=== PATIENT | male | born 1950 | race Caucasian/White ===

== ENCOUNTER 2019-10-12 16:14 | Outpatient (RCR) | payer OTHER, SELFPAY ==
[2019-10-12 17:07] LABS: INR 2.5; Prothrombin Time 26.4 Seconds (11.1-14.7)
== END 2020-01-10 23:59 | disposition home or self-care (01) ==
LOC: ANHLAB 16:14
PROVIDERS: PCP Family Medicine; Visit Provider Nurse Practitioner Family
DX: Z51.81 Encounter for therapeutic drug level monitoring (principal); Z79.01 Long term (current) use of anticoagulants
CPT/HCPCS: 36415; 85610

== ENCOUNTER 2019-11-30 15:47 | Outpatient (CLI) | payer OTHER, SELFPAY ==
[2019-11-30 17:09] LABS: Basophils Percent Auto 0.6 % (0.2-1.2); Eosinophils Absolute Auto 0.1 K/mm3 (0-0.3); Hematocrit 49.1 % (42.0-52.0); Hemoglobin 15.8 g/dL (14.0-18.0); Immature Granulocyte Absolute 0.02 K/mm3 (0.00-0.031); Immature Granulocyte Percent A 0.3 % (0-0.5); Lymphocytes Absolute Auto 0.99 K/mm3 (0.9-3.2); Lymphocytes Percent Auto 14.6 % (18.3-44.2); Mean Corpuscular HGB Conc 32.2 g/dl (32-36); Mean Corpuscular Hemoglobin 30.2 pg (26-34); Mean Corpuscular Volume 93.9 fl (80-100); Mean Platelet Volume 11.5 fl (7.4-10.4); Monocytes Absolute Auto 0.6 K/mm3 (0.1-0.6); Monocytes Percent Auto 8.1 % (2.6-8.5); Neutrophils Absolute Auto 5.1 K/mm3 (1.3-6.7); Neutrophils Percent Auto 75.4 % (45.5-73.1); Platelet Count Result 189 k/mm3 (150-375); Red Blood Count 5.23 M/mm3 (4.6-6.20); Red Cell Distribution Width 14.6 % (11.5-14.5); White Blood Count 6.8 K/mm3 (4.5-10.0)
[2019-11-30 17:15] LABS: Alanine Aminotransferase 25 U/L (4-50); Albumin Level 4.7 g/dL (3.5-5.1); Alkaline Phosphatase 98 U/L (38-126); Aspartate Amino Transferase 37 U/L (17-59); Bilirubin,Total 2.2 mg/dL (0.2-1.3); Blood Urea Nitrogen 19 mg/dL (9-20); Carbon Dioxide 26 mmol/L (22-30); Chloride 100 mmol/L (98-107); Cholesterol 260 mg/dL (0-200); Estimated Glomerular Filt Rate 60; Glucose 82 mg/dL (75-110); HDL Direct 49 mg/dL; Potassium 4.3 mmol/L (3.4-5.0); Sodium 138 mmol/L (137-145); Triglycerides 159 mg/dL (<150)
[2019-11-30 17:26] LABS: LDL Cholesterol Direct 173 mg/dL
== END 2019-11-30 15:48 | disposition home or self-care (01) ==
LOC: ANHBWCLAB 15:50
PROVIDERS: PCP Family Medicine; Visit Provider Nurse Practitioner Family
DX: E78.2 Mixed hyperlipidemia (principal); R73.03 Prediabetes
CPT/HCPCS: 36415; 80053; 80061; 83036; 85025

== ENCOUNTER 2019-12-28 16:08 | Outpatient (RCR) | payer OTHER, SELFPAY ==
[2019-11-24 17:36] LABS: INR 3.3
[2019-12-15 17:28] LABS: INR 3.2; Prothrombin Time 32.2 Seconds (11.1-14.7)
[2019-12-28 17:36] LABS: Prothrombin Time 22.5 Seconds (11.1-14.7)
== END 2020-02-22 23:59 | disposition home or self-care (01) ==
LOC: ANHBWCLAB 16:08
PROVIDERS: PCP Family Medicine; Visit Provider Family Medicine
DX: Z51.81 Encounter for therapeutic drug level monitoring (principal); Z79.01 Long term (current) use of anticoagulants
CPT/HCPCS: 36415; 85610

== ENCOUNTER 2021-04-12 11:25 | Outpatient (CLI) | payer OTHER, SELFPAY ==
[2021-04-12 19:58] LABS: Basophils Absolute Auto 0.1 K/mm3 (0.0-0.1); Basophils Percent Auto 1.3 % (0.2-1.2); Eosinophils Absolute Auto 0.1 K/mm3 (0-0.3); Eosinophils Percent Auto 3.1 % (0-4.4); Hematocrit 48.1 % (42.0-52.0); Hemoglobin 15.6 g/dL (14.0-18.0); Immature Granulocyte Absolute 0.01 K/mm3 (0.00-0.031); Immature Granulocyte Percent A 0.2 % (0-0.5); Lymphocytes Absolute Auto 0.74 K/mm3 (0.9-3.2); Lymphocytes Percent Auto 16.6 % (18.3-44.2); Mean Corpuscular HGB Conc 32.4 g/dl (32-36); Mean Corpuscular Hemoglobin 30.6 pg (26-34); Mean Corpuscular Volume 94.5 fl (80-100); Monocytes Absolute Auto 0.5 K/mm3 (0.1-0.6); Monocytes Percent Auto 10.8 % (2.6-8.5); Platelet Count Result 170 k/mm3 (150-375); Red Blood Count 5.09 M/mm3 (4.6-6.20); Red Cell Distribution Width 14.8 % (11.5-14.5); White Blood Count 4.5 K/mm3 (4.5-10.0)
[2021-04-12 20:06] LABS: INR 1.7; Prothrombin Time 20.7 Seconds (11.1-14.7)
[2021-04-12 20:12] LABS: Alanine Aminotransferase 24 U/L (4-50); Alkaline Phosphatase 88 U/L (38-126); Anion Gap 6 mmol/L (8-16); Aspartate Amino Transferase 32 U/L (17-59); Bilirubin,Total 0.8 mg/dL (0.2-1.3); Blood Urea Nitrogen 19 mg/dL (9-20); Calcium 9.2 mg/dL (8.4-10.2); Carbon Dioxide 25 mmol/L (22-30); Chloride 108 mmol/L (98-107); Cholesterol 255 mg/dL (0-200); Estimated Glomerular Filt Rate > 60; Glucose 89 mg/dL (75-110); HDL Direct 43 mg/dL; Potassium 4.5 mmol/L (3.4-5.0); Sodium 139 mmol/L (137-145); Triglycerides 410 mg/dL (<150)
[2021-04-12 20:17] LABS: Hemoglobin A1C 5.8 % (<5.7)
[2021-04-12 20:23] LABS: LDL Cholesterol Direct 137 mg/dL
[2021-04-12 20:28] LABS: Vitamin D 25 Hydroxy 88.4 ng/mL
== END 2021-04-12 11:26 | disposition home or self-care (01) ==
LOC: ANHBWCLAB 11:28
PROVIDERS: PCP Family Medicine; Visit Provider Physician Assistant
DX: E78.2 Mixed hyperlipidemia (principal); I10 Essential (primary) hypertension; I48.19 Other persistent atrial fibrillation; R73.03 Prediabetes; Z79.01 Long term (current) use of anticoagulants
CPT/HCPCS: 36415; 80053; 80061; 82306; 83036; 85025; 85610

== ENCOUNTER 2021-05-02 15:15 | Outpatient (CLI) | payer OTHER, SELFPAY ==
[2021-05-02 17:44] LABS: Prothrombin Time 30.5 Seconds (11.1-14.7)
== END 2021-05-02 15:16 | disposition home or self-care (01) ==
PROVIDERS: PCP Family Medicine; Visit Provider Physician Assistant
DX: I48.19 Other persistent atrial fibrillation (principal); Z79.01 Long term (current) use of anticoagulants
CPT/HCPCS: 36415; 85610

== ENCOUNTER 2023-04-01 11:55 | Outpatient (CLI) | payer OTHER, SELFPAY ==
--- NOTE | ~2023-04-01 | XR_ITS ---
Clinical Indication: Shortness of breath PA and lateral views of the chest: Comparison: None Findings: There are minimal bilateral pleural effusions. No consolidation or pneumothorax. Cardiomed iastinal silhouette is enlarged. Bones and soft tissues are unremarkable. Impression: Minimal bilateral pleural effusions. Cardiomegaly. Reviewed, dictated and finalized at location . Impression: Minimal bilateral pleural effusions. Cardiomegaly.
[2023-04-01 21:25] LABS: Cholesterol 200 mg/dL (0-200); HDL Direct 56 mg/dL; Triglycerides 137 mg/dL (<150)
[2023-04-01 21:41] LABS: LDL Cholesterol Direct 117 mg/dL
[2023-04-01 21:59] LABS: Prostate Specific Antigen 4.8 ng/mL (< OR = 4.0); Thyroid Stimulating Hormone 0.085 uIU/mL (0.465-4.680)
== END 2023-04-01 11:56 | disposition home or self-care (01) ==
LOC: ANHBWCLAB 11:56
PROVIDERS: PCP Family Medicine; Visit Provider Nurse Practitioner
DX: R06.02 Shortness of breath (principal); I48.19 Other persistent atrial fibrillation; R73.03 Prediabetes; E78.2 Mixed hyperlipidemia; Z12.5 Encounter for screening for malignant neoplasm of prostate; Z79.01 Long term (current) use of anticoagulants
CPT/HCPCS: 36415; 71046; 80061; 84153; 84443; G0103

== ENCOUNTER 2023-04-01 14:09 | Inpatient (IN) | payer OTHER, MEDICARE, SELFPAY ==
[2023-04-01] VITALS (23 sets, daily range): BP systolic 90–112; BP diastolic 66–82; PULSE 86–117; RESP 15–30; TEMP 36.2–36.7; O2SAT 89–100
--- NOTE | ~2023-04-01 | US_ITS ---
EXAMINATION: US venous doppler [facility] DATE: 04/01/2023 22:22 INDICATION: edema . TECHNIQUE: Grayscale images without and with compression and Doppler images of the bilateral lower ex tremity veins were obtained. COMPARISON: None FINDINGS: The right common femoral vein, profunda (deep) femoral vein, femoral vein, popliteal vein, peroneal v ein, posterior tibial veins, gastrocnemius vein, and greater saphenous vein are patent. The left common femoral vein, profunda (deep) femoral vein, femoral vein, popliteal vein, peroneal v ein, posterior tibial veins, gastrocnemius vein, and greater saphenous vein are patent. IMPRESSION: 1. Patent bilateral lower extremity veins. No evidence of deep venous thrombosis. Reviewed, dictated and finalized at location K. IMPRESSION: 1. Patent bilateral lower extremity veins. No evidence of deep venous thrombos is.
--- NOTE | 2023-04-01 14:15 | ECG_ITS ---
Measurements Intervals [place] Rate: 115 P: IA: 0 QRS: 17 QRSD: 96 T: 179 QT: 358 QTc: 497 Interpretive Statements ATRIAL FIBRILLATION WITH RAPID VENTRICULAR RESPONSE LOW QRS VOLTAGE IN LIMB LEADS CANNOT RULE OUT SEPTAL INFARCT, AGE INDETERMINATE BORDERLINE ST-T WAVE ABNORMALITY- INF/LAT LEADS BASELINE ARTIFACT- I, II, III, AVR, AVL, AVF, V4-V6 ABNORMAL ECG NO PREVIOUS ECG AVAILABLE FOR COMPARISON Electronically Signed On 04-01-2023 14:50:52 CDT by Dharmesh Clark D.O.
[2023-04-01 14:37] LABS: Basophils Percent Auto 0.5 % (0.2-1.2); Eosinophils Percent Auto 0.4 % (0-4.4); Hematocrit 48.5 % (42.0-52.0); Hemoglobin 15.9 g/dL (14.0-18.0); Immature Granulocyte Absolute 0.03 K/mm3 (0.00-0.031); Immature Granulocyte Percent A 0.4 % (0-0.5); Lymphocytes Absolute Auto 0.51 K/mm3 (0.9-3.2); Mean Corpuscular HGB Conc 32.8 g/dl (32-36); Mean Corpuscular Hemoglobin 30.5 pg (26-34); Mean Corpuscular Volume 93.1 fl (80-100); Mean Platelet Volume 11.6 fl (7.4-10.4); Monocytes Absolute Auto 0.5 K/mm3 (0.1-0.6); Monocytes Percent Auto 7.1 % (2.6-8.5); Neutrophils Absolute Auto 6.2 K/mm3 (1.3-6.7); Neutrophils Percent Auto 84.6 % (45.5-73.1); Platelet Count Result 162 k/mm3 (150-375); Red Blood Count 5.21 M/mm3 (4.6-6.20); White Blood Count 7.3 K/mm3 (4.5-10.0)
[2023-04-01 14:50] LABS: Alanine Aminotransferase 46 U/L (6-50); Alkaline Phosphatase 65 U/L (38-126); Anion Gap 8 mmol/L (8-16); Aspartate Amino Transferase 44 U/L (17-59); Bilirubin,Total 1.6 mg/dL (0.2-1.3); Blood Urea Nitrogen 23 mg/dL (9-20); Calcium 8.8 mg/dL (8.4-10.2); Carbon Dioxide 24 mmol/L (22-30); Chloride 109 mmol/L (98-107); Estimated CRCL calculation 55 ml/min; Estimated Glomerular Filt Rate 54; Glucose 107 mg/dL (65-110); Potassium 4.8 mmol/L (3.4-5.0); Sodium 141 mmol/L (137-145)
--- NOTE | 2023-04-01 15:51 | ED.GENADULT ---
HPI - General Adult General Chief complaint: Arrhythmia/Palpitations Stated complaint: cardiac event Time Seen by Provider: 04/01/23 14:42 History of Present Illness HPI narrative: 72-year-old male presented emerged department for evaluation of increased shortness of breath and persistent A-fib. Patient was initially diagnosed with atrial fibrillation approximately 8 years ago. Patient reports about 2 years ago he stopped taking his medications. Over the course of the last 2 weeks patient describes worsening shortness of breath and orthopnea. Patient did have follow-up with urgent care and was restarted on his lisinopril carvedilol today. Patient was also started on Xarelto but has not started taking this medication. Patient was referred from the urgent care to the emerged department. Patient does report increased shortness of breath but denies any current chest pain. 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 Father No problems noted. Social History Social History Smoking status: Never smoker Second hand tobacco smoke exposure: No Alcohol intake: current Substance use: never Substance use type: does not use Other substance usage details: 1 or 2 times a month Lack of Transportation: No Lack of Food: Never True Current Housing: I Have Housing Concerned About Future Housing: No Difficulty Paying Gas/Electric Bills: No Difficulty Paying for Meds: No Currently Unemployed: No Education: Master's Degree or Higher Difficulty w/ Childcare or Family Care: No Living arrangements: alone Occupation/Education: occupation Gender identity (if verbalized by the patient): Male Spiritual care concerns: No Exam Narrative: APPEARANCE: Well appearing, no pain, no distress, well-nourished. HEAD: normocephalic, atraumatic. EYES: PERRLA/EOMI, conjunctivae clear. NECK: Supple. No adenopathy, no masses. RESPIRATORY: Airway patent, respirations nonlabored. Clear to auscultation bilaterally, no rales, rhonchi, wheezing. CARDIOVASCULAR: Regular rate and rhythm without murmurs rubs or gallops. ABDOMINAL: Soft, nontender, nondistended, normal bowel sounds MUSCULOSKELETAL: Moves all extremities. Strength/ROM intact, No edema, No calf tenderness. NEURO: Alert. Cranial nerves II through XII intact. Good gait. Good coordination SKIN: Warm, dry. Normal Color PSYCHIATRIC: Normal affect/mood. Course Course Emergency Course: 72-year-old male presenting to the ED for evaluation of increased difficulty breathing. Patient was afebrile with no leukocytosis. Patient was initially tachycardic but this did improved with rest. Patient had no hypoxia. Patient's hemoglobin was 15.9. Patient's CMP was similar to his baseline. Patient did have a significantly elevated BNP of 12,000. Patient did have an outpatient chest x-ray showing cardiomegaly and bilateral pleural effusions. Case was discussed with the hospitalist and patient was accepted for admission for further work-up of suspected CHF. Patient was updated on the results of the work-up and the plan for admission. All questions or concerns were addressed. Patient was stable at time of admission Vital Signs Vital signs: Vital Signs Temperature 97.1 F L 04/01/23 14:12 Pulse Rate 110 H 04/01/23 14:12 Respiratory Rate 18 04/01/23 14:12 Blood P
[2023-04-01 16:09] LABS: NT Pro B Type Natriuretic Pept 12000 pg/mL (19.9-100)
[2023-04-01] MEDS: FUROSEMIDE INJ 40 MG/4 ML VIAL IV PUSH ×2 (16:54→21:10)
--- NOTE | 2023-04-01 17:32 | ADMGEN ---
This patient, Emre Quigley, was admitted to IMU Room 210-01. Patient/family oriented to hospital policies and general routines including ID bracelet, bed and alarms, visiting hours, pain management, procedures, bathroom and other care routines, personal items, smoking policy, room service/diet, and visiting hours. Information on how to activate the Rapid Response Team has been discussed. Patient/Family are encouraged to report perceived risks to care and to ask questions if they do not understand what they are told or what they should do.
--- NOTE | 2023-04-01 20:29 | PM.IMHP ---
H&P: HPI History of Present Illness Date/Time: 04/01/23 19:00 Chief Complaint: Shortness of breath. Narrative: This is a very pleasant 72-year-old male with history of paroxysmal atrial fibrillation who presented to the emergency department via private vehicle for evaluation of shortness of breath. He was previously on carvedilol and warfarin for paroxysmal atrial fibrillation though he has not been on medication for couple of years; is unclear why he stopped taking his medications. He does not think he has had any issues with atrial fibrillation however it does not sound as though he has ever had symptoms such as racing heart or palpitations. In any event, he endorses progressive dyspnea on exertion, orthopnea, and the development of lower extremity edema over the last couple of weeks. Last night he was unable to sleep and had to retire to his recliner to get a little bit of rest. Initially he thought perhaps he had some chest congestion and when his symptoms did not improve he decided to come in for evaluation. He denies fever, chills, sweats, sinus congestion, sore throat, cough, chest pain, pleuritic pain, sensations of racing heart, palpitations, paroxysmal nocturnal dyspnea, heavy snoring, daytime somnolence, nausea, vomiting, and calf pain. On arrival to the ED his blood pressure was 131/110 and he was found to be in atrial fibrillation with rapid ventricular response with a rate of 133. [place]BNP [place] [address] and chest x-ray at urgent care today showed minimal bilateral pleural effusions and cardiomegaly. He was given a dose of IV Lasix 40 mg x 1 and he has had good response with that thus far and reports feeling a bit better. He has been admitted to IMU for further treatment and Cardiology consultation. At the time my evaluation he tells me he is feeling better than he has in a week. He is still getting a bit winded when walking around the room however. He has no current complaints. Review of Systems Review of Systems: Twelve systems were reviewed and are negative except for as per HPI. [facility] Past Medical History Medical History (Updated 04/01/23 @ 23:55 by Susan Young PA-C) Benign essential hypertension Mixed hyperlipidemia Persistent atrial fibrillation Surgical History Surgical History (Updated 04/01/23 @ 23:50 by Susan Young PA-C) No history of previous surgery Family History Family History Mother No problems noted. Father No problems noted. Social History Social History (Updated 04/01/23 @ 23:51 by Susan Young PA-C) Social History: Surrogate medical decision maker: Lakhwinder Quigley, sister. Code status: Full code. Smoking status: Never smoker Second hand tobacco smoke exposure: No Alcohol intake: current Alcohol use details: Rare alcohol use in moderation. Substance use: never Substance use type: does not use Lack of Transportation: No Lack of Food: Never True Current Housing: I Have Housing Concerned About Future Housing: No Difficulty Paying Gas/Electric Bills: No Difficulty Paying for Meds: No Currently Unemployed: No Education: Master's Degree or Higher Difficulty w/ Childcare or Family Care: No Living arrangements: alone Occupation/Education: occupation Additional occupation/education comments: Works full-time at [employer]. Spiritual care concerns: No Meds Home Medications and Allergies Home Medications Medication Instructions Recorded Confirmed Type carvedilol 12.5 mg tablet 12.5 mg PO Q12H #90 tabs 04/01/23 04/01/23 Rx lisinopril 10 mg tablet 10 mg PO DAILY #90 tabs 04/01/23 04/01/23 Rx rivaroxaban 20 mg tablet (Xarelto) 20 mg PO DAILY #60 tabs 04/01/23 04/01/23 Rx Allergies Allergy/AdvReac Type Severity Reaction Status Date / Time No Known Allergies Allergy Mild Verified 04/01/23 11:04 Vital Signs Vital Signs - 24 hr 04/01/23 14:1
[2023-04-01] MEDS: RIVAROXABAN 20 MG TABLET PO (21:34)
[2023-04-01] MEDS: carvediloL 12.5 MG TABLET PO (21:35)
[2023-04-02] VITALS (14 sets, daily range): BP systolic 94–123; BP diastolic 57–81; PULSE 25–124; RESP 16–20; TEMP 36.3–37.1; O2SAT 95–99
[2023-04-02] MEDS: CALCIUM CARBONATE (TUMS) 500 MG (200 MG ELEMENTAL) PO (00:16)
[2023-04-02 05:12] LABS: Anion Gap 3 mmol/L (8-16); Blood Urea Nitrogen 26 mg/dL (9-20); Calcium 9.2 mg/dL (8.4-10.2); Carbon Dioxide 33 mmol/L (22-30); Chloride 105 mmol/L (98-107); Estimated CRCL calculation 48 ml/min; Estimated Glomerular Filt Rate 46; Glucose 94 mg/dL (65-110); Magnesium 2.3 mg/dL (1.6-2.3); Potassium 4.8 mmol/L (3.4-5.0); Sodium 141 mmol/L (137-145)
[2023-04-02 06:05] LABS: Thyroid Stimulating Hormone Reflex 0.236 uIU/mL (0.465-4.68)
[2023-04-02] MEDS: FUROSEMIDE INJ 40 MG/4 ML VIAL 20 MG IV PUSH ×2 (10:31→20:54)
[2023-04-02] MEDS: carvediloL 3.125 MG TABLET PO ×2 (10:35→20:54)
--- NOTE | 2023-04-02 12:31 | PM.IMPN ---
Progress Note: A&P Assessment and Plan (1) New onset of congestive heart failure: Code(s): I50.9 - Heart failure, unspecified Status: Acute (2) Atrial fibrillation with rapid ventricular response: Code(s): I48.91 - Unspecified atrial fibrillation Status: Acute (3) Benign essential hypertension: Code(s): I10 - Essential (primary) hypertension Status: Acute Plan shortness of breath over past couple weeks New onset congestive heart failure with orthopnea edema [place] [address]. Atrial fibrillation with rapid ventricular rate rate controlled restarted on carvedilol. Started on Xarelto. He used to be on Xarelto in the past but has stopped all his medication Cardiomegaly on x-ray echo ordered which is pending Cardiology to see Abnormal TSH follow-up as an outpatient basis. Free T4 pending Lower extremity edema venous duplex negative for DVT Code status full code DVT prophylaxis Xarelto Subjective Date/time seen: 04/02/23 12:31 Interval history: he is feeling better. breathing is better. no chest pain. leg swelling persist Review of Systems Review of Systems: All systems reviewed & are unremarkable except as noted in HPI and below Exam Narrative: General: Well-developed male sitting in a chair at the side of the bed in no distress. HEENT: Normocephalic, atraumatic. PERRL, EOMI. Sclera anicteric. Oral mucosa moist. Neck: Supple. No jugular venous distention or obvious carotid bruits. Respiratory: no respiratory distress. Lung sounds clear to auscultation Cardiovascular: Regular rate and rhythm with S1-S2. Gastrointestinal: Abdomen is soft, nontender, and nondistended with positive bowel sounds. Skin: Warm and dry. Extremities: No cyanosis or clubbing. 3+ tari ankle edema softening towards the knees. Radial and pedal pulses intact. Negative Rj sign bilaterally. Neurological: Alert. Cranial nerves 2-12 are grossly intact. No gross focal deficits to casual conversation. Psychiatric: Pleasant and cooperative with normal mood and affect. Judgment and insight intact. Objective Data Vital Signs Vital Signs: Vital Signs - 24 hr 04/01/23 14:12 04/01/23 14:48 04/01/23 14:49 Temperature 97.1 F L Pulse Rate 110 H 104 H 102 H Respiratory Rate 18 18 Blood Pressure 102/75 95/73 L Pulse Oximetry 96 98 Oxygen Delivery Room Air 04/01/23 14:43 04/01/23 14:45 04/01/23 14:47 Temperature Pulse Rate 106 H 105 H 104 H Respiratory Rate 28 H 23 H 22 H Blood Pressure 95/73 L Pulse Oximetry 95 97 97 Oxygen Delivery 04/01/23 15:00 04/01/23 15:01 04/01/23 15:15 Temperature Pulse Rate 107 H 97 86 Respiratory Rate 28 H 30 H 27 H Blood Pressure 92/80 L Pulse Oximetry 97 94 98 Oxygen Delivery 04/01/23 15:16 04/01/23 15:34 04/01/23 15:45 Temperature Pulse Rate 95 90 102 H Respiratory Rate 27 H 15 29 H Blood Pressure 92/68 L Pulse Oximetry 89 L 90 94 Oxygen Delivery 04/01/23 15:47 04/01/23 15:48 04/01/23 16:00 Temperature Pulse Rate 96 93 101 H Respiratory Rate 23 H 27 H 24 H Blood Pressure 99/82 L Pulse Oximetry 92 93 100 Oxygen Delivery 04/01/23 16:02 04/01/23 17:26 04/01/23 18:00 Temperature Pulse Rate 100 93 117 H Respiratory Rate 25 H 20 Blood Pressure 106/72 105/73 Pulse Oximetry 92 94 Oxygen Delivery 04/01/23 17:45 04/01/23 20:00 04/01/23 20:00 Temperature 98.0 F Pulse Rate 93 93 Respiratory Rate 20 20 Blood Pressure 112/69 Pulse Oximetry 94 94 Oxygen Delivery Room Air Room Air 04/01/23 21:35 04/01/23 20:00 04/01/23 23:29 Temperature 97.6 F Pulse Rate 97 102 H 91 Respiratory Rate 18 Blood Pressure 90/66 L Pulse Oximetry 98 Oxygen Delivery 04/02/23 00:00 04/01/23 22:00 04/02/23 00:00 Temperature Pulse Rate 91 96 79 Respiratory Rate 18 Blood Pressure Pulse Oximetry 98 Oxygen Delivery Room Air 04/02/23
--- NOTE | 2023-04-02 13:33 | PM.CNCAR ---
Assessment and Plan Assessment and plan (1) Atrial fibrillation with rapid ventricular response: Code(s): I48.91 - Unspecified atrial fibrillation Status: Acute Assessment and Plan: Patient is currently rate controlled on tele. Continue beta katheryn. Continue Xarelto. TSH is low which could be contributing. Free T4 pending. (2) New onset of congestive heart failure: Code(s): I50.9 - Heart failure, unspecified Status: Acute Assessment and Plan: Echo shows LVEF 20-25%. This is a new diagnosis for heart failure with reduced ejection fraction. Continue with intermittent IV Lasix for now. Please monitor strict I/Os. Continue with beta katheryn. Start ACEi/ARB/ARNI when renal function improves. Will also start Spironolactone and Jardiance when renal function improves. Will need eventual ischemic evaluation -- to be done as outpatient. Will arrange close follow up in our office. History of Present Illness History of Present Illness Consult date/time: 04/02/23 13:33 Requesting physician: Susan Young PA-C Consult reason: atrial fibrillation and congestive heart failure Reason For Visit: chf,atrial fibrillation Narrative: We are consulted for congestive heart failure and atrial fibrillation. This is a pleasant 72-year-old male with history of atrial fibrillation who presented to his PCP's office yesterday to establish care. Patient has been short of breath for the past 2 weeks. + Orthopnea. + Bilatera lower extremity edema. EKG obtained in PCP's office showed atrial fibrillation with RVR. Sent to the ER for further evaluation. BNP 12,000. Given IV Lasix. CXR with small bilateral pleural effusions. Patient states he is feeling better since hospital admission. Shortness of breath has improved. No chest pain, palpitations. Lower extremity edema improving. Review of Systems Review of Systems: All systems reviewed & are unremarkable except as noted in HPI and below (HPI) [facility] Past Medical History Medical History Benign essential hypertension Mixed hyperlipidemia Persistent atrial fibrillation Surgical History Surgical History No history of previous surgery Family History Family History Mother No problems noted. Father No problems noted. Social History Social History Social History: Surrogate medical decision maker: Lakhwinder Quigley, sister. Code status: Full code. Smoking status: Never smoker Second hand tobacco smoke exposure: No Alcohol intake: current Alcohol use details: Rare alcohol use in moderation. Substance use: never Substance use type: does not use Lack of Transportation: No Lack of Food: Never True Current Housing: I Have Housing Concerned About Future Housing: No Difficulty Paying Gas/Electric Bills: No Difficulty Paying for Meds: No Currently Unemployed: No Education: Master's Degree or Higher Difficulty w/ Childcare or Family Care: No Living arrangements: alone Occupation/Education: occupation Additional occupation/education comments: Works full-time at [employer]. Spiritual care concerns: No Meds Home Medications and Allergies Home Medications Medication Instructions Recorded Confirmed Type carvedilol 12.5 mg tablet 12.5 mg PO Q12H #90 tabs 04/01/23 04/01/23 Rx lisinopril 10 mg tablet 10 mg PO DAILY #90 tabs 04/01/23 04/01/23 Rx rivaroxaban 20 mg tablet (Xarelto) 20 mg PO DAILY #60 tabs 04/01/23 04/01/23 Rx Allergies Allergy/AdvReac Type Severity Reaction Status Date / Time No Known Allergies Allergy Mild Verified 04/01/23 11:04 Vital Signs Vital Signs - 24 hr 04/01/23 14:12 04/01/23 14:48 04/01/23 14:49 Temperature 36.2 C L Pulse Rate 110 H 104 H 102 H Respir
[2023-04-02 14:44] LABS: Free T4 Free Thyroxine Reflex 1.59 ng/dL (0.78-2.19)
[2023-04-02 17:13] LABS: Total Triiodothyronine (T3) 1.47 NG/ML (0.97-1.69)
[2023-04-02] MEDS: RIVAROXABAN 20 MG TABLET PO (17:30)
--- NOTE | 2023-04-02 20:18 | PC.NURSE ---
Patient notified he is being transferred from room 210 to room 243. SBAR faxed to Yu WHITNEY and 15 minutes later, verbal report given to Yu WHITNEY
--- NOTE | 2023-04-02 20:47 | ECHO_ITS ---
Patient Info Name: Emre Quigley Age: 72 years : 1950 Gender: Male Ht: 71 in Wt: 120 lbs BSA: 1.63 m2 HR: 87 bpm BP: 98 / 57 mmHg Heart Rhythm: Indeterminant Technical Quality: Poor Exam Date: 04/02/2023 9:05 AM Exam Location: [facility] Patient Status: Outpatient Admit Date: 04/01/2023 Staff Ordering Physician: Susan Young PA-C Hotel Office Manager: Emily Marks RDCS Attending Provider: Sonya Paiz MD Referring Physician: Hannah MARKHAM; Exam Type: CA echo doppler color flow Study Info Indications - chf/a-fib Complete two-dimensional, color flow and Doppler transthoracic echocardiogram is performed. Reason for Poor Study: poor patient cooperation Summary 1. Complete two-dimensional, color flow and Doppler transthoracic echocardiogram is performed. 2. Left ventricular chamber dimension is normal. 3. Left ventricular systolic function is severely reduced, estimated at 20-25%. 4. Right ventricular systolic function is normal. 5. Left atrial chamber dimension is moderately enlarged. 6. Right atrial chamber dimension is mildly enlarged. 7. There is moderate mitral valve regurgitation. 8. There is mild tricuspid valve regurgitation. 9. There is moderate circumferential pericardial effusion. No echocardiographic evidence of tamponade. Left Ventricle Left ventricular chamber dimension is normal. Left ventricular systolic function is severely reduced, estimated at 20-25%. There is no increased left ventricular wall thickness. Right Ventricle Right ventricular chamber dimension is normal. Right ventricular systolic function is normal. Left Atria Left atrial chamber dimension is moderately enlarged. Right Atria Right atrial chamber dimension is mildly enlarged. Atrial Septum Intact interatrial septum visualized by color flow imaging. Aortic Valve The aortic valve is trileaflet. There is no aortic valve stenosis. There is no aortic valve regurgitation. Pulmonic Valve The pulmonic valve is not well visualized. There is trace pulmonic regurgitation. Mitral Valve The mitral valve has thickened leaflets. There is moderate mitral valve regurgitation. Tricuspid Valve There is mild tricuspid valve regurgitation. Pericardium/Pleural There is moderate circumferential pericardial effusion. No echocardiographic evidence of tamponade. Inferior Vena Cava Dilated inferior vena cava with <50% collapse upon inspiration consistent with elevated right atrial pressure, 15 mmHg. Aorta The aortic root size at the sinus of Valsalva is normal. Left Ventricular Outflow Tract Name Value Normal LVOT 2D LVOT Diameter 2.0 cm LVOT Doppler LVOT Peak Gradient 4 mmHg LVOT Mean Gradient 3 mmHg LVOT VTI 22 cm LVOT VTI/AV VTI Ratio 1.2 LVOT Stroke Volume 71 ml LVOT CO 5.5 l/min LVOT CI 3.4 l/min/m2 Pulmonic Valve Name Value Normal
--- NOTE | 2023-04-02 22:43 | PC.NURSE ---
Patient transferred to room 243 @2029 with all of his belongings
[2023-04-03] VITALS (17 sets, daily range): BP systolic 88–116; BP diastolic 64–77; PULSE 79–108; RESP 16–20; TEMP 36.1–36.6; O2SAT 92–100
[2023-04-03 05:50] LABS: Basophils Percent Auto 0.8 % (0.2-1.2); Eosinophils Absolute Auto 0.1 K/mm3 (0-0.3); Hematocrit 44.7 % (42.0-52.0); Hemoglobin 14.7 g/dL (14.0-18.0); Immature Granulocyte Absolute 0.01 K/mm3 (0.00-0.031); Immature Granulocyte Percent A 0.2 % (0-0.5); Immature Platelet Fraction Pct 6.4 % (0.9-11.2); Lymphocytes Absolute Auto 0.76 K/mm3 (0.9-3.2); Mean Corpuscular HGB Conc 32.9 g/dl (32-36); Mean Corpuscular Hemoglobin 30.9 pg (26-34); Mean Corpuscular Volume 93.9 fl (80-100); Mean Platelet Volume 11.7 fl (7.4-10.4); Monocytes Absolute Auto 0.6 K/mm3 (0.1-0.6); Monocytes Percent Auto 11.6 % (2.6-8.5); Neutrophils Absolute Auto 3.6 K/mm3 (1.3-6.7); Neutrophils Percent Auto 70.4 % (45.5-73.1); Platelet Count Result 136 k/mm3 (150-375); Red Blood Count 4.76 M/mm3 (4.6-6.20); Red Cell Distribution Width 15.6 % (11.5-14.5); White Blood Count 5.1 K/mm3 (4.5-10.0)
[2023-04-03 06:01] LABS: Alanine Aminotransferase 40 U/L (6-50); Albumin Level 3.2 g/dL (3.5-5.1); Alkaline Phosphatase 55 U/L (38-126); Anion Gap 4 mmol/L (8-16); Aspartate Amino Transferase 38 U/L (17-59); Bilirubin,Total 1.4 mg/dL (0.2-1.3); Blood Urea Nitrogen 28 mg/dL (9-20); Calcium 8.4 mg/dL (8.4-10.2); Carbon Dioxide 31 mmol/L (22-30); Chloride 101 mmol/L (98-107); Cholesterol 149 mg/dL (0-200); Estimated CRCL calculation 45 ml/min; Estimated Glomerular Filt Rate 50; Glucose 88 mg/dL (65-110); HDL Direct 38 mg/dL; Magnesium 2.1 mg/dL (1.6-2.3); Potassium 3.9 mmol/L (3.4-5.0); Sodium 136 mmol/L (137-145); Triglycerides 149 mg/dL (<150)
[2023-04-03 06:12] LABS: LDL Cholesterol Direct 84 mg/dL
[2023-04-03] MEDS: FUROSEMIDE INJ 40 MG/4 ML VIAL IV PUSH ×2 (10:33→20:39)
[2023-04-03] MEDS: METOPROLOL SUCCINATE EXT REL 12.5 MG TABCR PO (10:33)
--- NOTE | 2023-04-03 10:50 | PM.PNCARD ---
Progress Note: A&P Assessment and Plan (1) New onset of congestive heart failure: Code(s): I50.9 - Heart failure, unspecified Status: Acute Assessment and Plan: Echo shows LVEF 20-25%. This is a new diagnosis for heart failure with reduced ejection fraction. Continue with intermittent IV Lasix for now. Please monitor strict I/Os. Will increase his Lasix to 40mg IV BID. Continue with beta katheryn. Will switch Coreg to low dose Toprol given his low blood pressures. Due to low blood pressures, unable to start ARNI/ACEi/ARB, Aldactone at this time. Will need eventual ischemic evaluation -- to be done as outpatient. Will arrange close follow up in our office. (2) Atrial fibrillation with rapid ventricular response: Code(s): I48.91 - Unspecified atrial fibrillation Status: Acute Assessment and Plan: Patient is currently rate controlled on tele. Continue beta katheryn. Continue Xarelto. Plan Recommendations/plan were discussed with the Hospitalist, Dr. Crawford. Subjective Date/time seen: 04/03/23 10:50 Interval history: Reason for visit: Decompensated heart failure, atrial fibrillation HPI: We are consulted for congestive heart failure and atrial fibrillation. This is a pleasant 72-year-old male with history of atrial fibrillation who presented to his PCP's office yesterday to establish care. Patient has been short of breath for the past 2 weeks. + Orthopnea. + Bilatera lower extremity edema. EKG obtained in PCP's office showed atrial fibrillation with RVR. Sent to the ER for further evaluation. BNP 12,000. Given IV Lasix. CXR with small bilateral pleural effusions. Patient states he is feeling better since hospital admission. Shortness of breath has improved. No chest pain, palpitations. Lower extremity edema improving. Date of service 04/03: No shortness of breath at rest or with exertion. Has been ambulating the hallways without symptoms. Lower extremity edema is improving. Continues to make good urine output. Review of Systems Review of Systems: 8 point ROS obtained. Negative, unless stated in HPI. Exam Const: General: comfortable and no acute distress HENMT: Mouth: Yes moist mucous membranes Eyes: General: appearance normal, both eyes and all related structures Sclera: sclerae normal Neck: Neck: supple Resp: Effort & Inspection: normal respiratory effort Auscultation: clear to auscultation bilaterally Cardio: Rhythm: abnormal rhythm irregularly irregular Other: 2+ bilateral lower extremity edema GI: GI Palp: Yes Soft to palpation and No Tenderness to palpation present (GI) Skin: General skin exam: normal color Neuro: Speech: normal speech Psych: Mental Status: mental status grossly normal Affect: normal affect Objective Data Vital Signs Vital Signs: Vital Signs - 24 hr 04/02/23 12:00 04/02/23 12:00 04/02/23 14:00 Temperature 37.1 C Pulse Rate 96 93 122 H Respiratory Rate 18 Blood Pressure 102/75 Pulse Oximetry 99 Oxygen Delivery 04/02/23 16:00 04/02/23 16:00 04/02/23 18:00 Temperature 37.0 C Pulse Rate 124 H 95 92 Respiratory Rate 18 Blood Pressure 123/81 Pulse Oximetry 99 Oxygen Delivery 04/02/23 19:50 04/02/23 20:31 04/02/23 20:54 Temperature 36.3 C L 36.8 C Pulse Rate 98 25 L 96 Respiratory Rate 20 18 Blood Pressure 102/66 99/76 L Pulse Oximetry 98 95 Oxygen Delivery 04/02/23 20:00 04/03/23 00:00 04/03/23 03:55 Temperature 36.2 C L Pulse Rate 96 89 83 Respiratory Rate 18 18 Blood Pressure 114/66 Pulse Oximetry 95 100 Oxygen Delivery Room Air 04/03/23 04:00 04/03/23 05:49 04/03/23 08:45 Temperature 36.3 C L Pulse Rate 91 89 89 Respiratory Rate 18 Blood Pressure 104/65 88/72 L Pulse Oximetry 93 Oxygen Delivery 04/03/23 09:14 04/03/23 08:45 04/03/23 08:00 Temperature Pulse Rate 79 Respiratory Rate Blood Pressure Pulse Oximetry 95 Oxygen Delivery
--- NOTE | 2023-04-03 11:23 | PM.IMPN ---
Progress Note: A&P Assessment and Plan (1) New onset of congestive heart failure: Code(s): I50.9 - Heart failure, unspecified Status: Acute (2) Atrial fibrillation with rapid ventricular response: Code(s): I48.91 - Unspecified atrial fibrillation Status: Acute (3) Benign essential hypertension: Code(s): I10 - Essential (primary) hypertension Status: Acute Plan shortness of breath over past couple weeks New onset congestive heart failure with orthopnea edema [place] [address]. Atrial fibrillation with rapid ventricular rate rate controlled restarted on carvedilol. Started on Xarelto. He used to be on Xarelto in the past but has stopped all his medication Cardiomegaly on x-ray echo With EF 20-25% moderate circumferential pericardial effusion moderate MR. Because of blood pressure Coreg switched to Toprol unable to start JAVIER inhibitor / Arb ARB and spironolactone. Ischemic evaluation as an outpatient basis discussed with cardiology. Abnormal TSH follow-up as an outpatient basis. Free T4 Is normal Lower extremity edema venous duplex negative for DVT Code status full code DVT prophylaxis Xarelto Subjective Date/time seen: 04/03/23 11:23 Interval history: 12/2022: No overnight events. Leg swelling persists. Walking in the hallways. Shortness of breath has improved. Review of Systems Review of Systems: All systems reviewed & are unremarkable except as noted in HPI and below Exam Narrative: General: Well-developed male sitting in a chair at the side of the bed in no distress. HEENT: Normocephalic, atraumatic. PERRL, EOMI. Sclera anicteric. Oral mucosa moist. Neck: Supple. No jugular venous distention or obvious carotid bruits. Respiratory: no respiratory distress. Lung sounds clear to auscultation Cardiovascular: Regular rate and rhythm with S1-S2. Gastrointestinal: Abdomen is soft, nontender, and nondistended with positive bowel sounds. Skin: Warm and dry. Extremities: No cyanosis or clubbing. 3+ tari ankle edema softening towards the knees. Radial and pedal pulses intact. Negative Rj sign bilaterally. Neurological: Alert. Cranial nerves 2-12 are grossly intact. No gross focal deficits to casual conversation. Psychiatric: Pleasant and cooperative with normal mood and affect. Judgment and insight intact. Objective Data Vital Signs Vital Signs: Vital Signs - 24 hr 04/02/23 12:00 04/02/23 12:00 04/02/23 14:00 Temperature 98.7 F Pulse Rate 96 93 122 H Respiratory Rate 18 Blood Pressure 102/75 Pulse Oximetry 99 Oxygen Delivery 04/02/23 16:00 04/02/23 16:00 04/02/23 18:00 Temperature 98.6 F Pulse Rate 124 H 95 92 Respiratory Rate 18 Blood Pressure 123/81 Pulse Oximetry 99 Oxygen Delivery 04/02/23 19:50 04/02/23 20:31 04/02/23 20:54 Temperature 97.4 F L 98.3 F Pulse Rate 98 25 L 96 Respiratory Rate 20 18 Blood Pressure 102/66 99/76 L Pulse Oximetry 98 95 Oxygen Delivery 04/02/23 20:00 04/03/23 00:00 04/03/23 03:55 Temperature 97.2 F L Pulse Rate 96 89 83 Respiratory Rate 18 18 Blood Pressure 114/66 Pulse Oximetry 95 100 Oxygen Delivery Room Air 04/03/23 04:00 04/03/23 05:49 04/03/23 08:45 Temperature 97.4 F L Pulse Rate 91 89 89 Respiratory Rate 18 Blood Pressure 104/65 88/72 L Pulse Oximetry 93 Oxygen Delivery 04/03/23 09:14 04/03/23 08:45 04/03/23 08:00 Temperature Pulse Rate 79 Respiratory Rate Blood Pressure Pulse Oximetry 95 Oxygen Delivery Room Air Room Air 04/03/23 10:25 04/03/23 10:33 Temperature 97.8 F Pulse Rate 93 108 H Respiratory Rate 16 Blood Pressure 110/64 Pulse Oximetry 100 Oxygen Delivery Intake/Output Intake/Output: Intake & Output 03/31/23 04/01/23 04/02/23 04/03/23 23:59 23:59 23:59 23:59 Intake Total 1020 1380 Output Total 3325 1000 Balance -2305 380 Meds/Re
[2023-04-03] MEDS: RIVAROXABAN 20 MG TABLET PO (17:01)
[2023-04-04] VITALS (7 sets, daily range): BP systolic 100–106; BP diastolic 81–83; PULSE 88–107; RESP 18; TEMP 36.1–36.6; O2SAT 98–100
[2023-04-04 05:59] LABS: Basophils Percent Auto 0.9 % (0.2-1.2); Eosinophils Absolute Auto 0.1 K/mm3 (0-0.3); Eosinophils Percent Auto 2.2 % (0-4.4); Hemoglobin 15.4 g/dL (14.0-18.0); Immature Granulocyte Absolute 0.01 K/mm3 (0.00-0.031); Immature Granulocyte Percent A 0.2 % (0-0.5); Lymphocytes Absolute Auto 0.86 K/mm3 (0.9-3.2); Lymphocytes Percent Auto 19.1 % (18.3-44.2); Mean Corpuscular HGB Conc 32.8 g/dl (32-36); Mean Corpuscular Hemoglobin 30.2 pg (26-34); Mean Corpuscular Volume 92.2 fl (80-100); Mean Platelet Volume 11.4 fl (7.4-10.4); Monocytes Absolute Auto 0.6 K/mm3 (0.1-0.6); Monocytes Percent Auto 13.3 % (2.6-8.5); Neutrophils Absolute Auto 2.9 K/mm3 (1.3-6.7); Neutrophils Percent Auto 64.3 % (45.5-73.1); Platelet Count Result 141 k/mm3 (150-375); Red Cell Distribution Width 15.4 % (11.5-14.5); White Blood Count 4.5 K/mm3 (4.5-10.0)
[2023-04-04 06:18] LABS: Alanine Aminotransferase 43 U/L (6-50); Albumin Level 3.8 g/dL (3.5-5.1); Alkaline Phosphatase 61 U/L (38-126); Anion Gap 7 mmol/L (8-16); Aspartate Amino Transferase 42 U/L (17-59); Bilirubin,Total 1.3 mg/dL (0.2-1.3); Blood Urea Nitrogen 33 mg/dL (9-20); Calcium 8.7 mg/dL (8.4-10.2); Carbon Dioxide 33 mmol/L (22-30); Chloride 98 mmol/L (98-107); Estimated CRCL calculation 42 ml/min; Estimated Glomerular Filt Rate 46; Glucose 91 mg/dL (65-110); Magnesium 2.4 mg/dL (1.6-2.3); Sodium 138 mmol/L (137-145)
[2023-04-04] MEDS: METOPROLOL SUCCINATE EXT REL 12.5 MG TABCR PO (08:26)
[2023-04-04] MEDS: FUROSEMIDE INJ 40 MG/4 ML VIAL IV PUSH (08:28)
--- NOTE | 2023-04-04 08:59 | PM.PNCARD ---
Progress Note: A&P Assessment and Plan (1) New onset of congestive heart failure: Code(s): I50.9 - Heart failure, unspecified Status: Acute Assessment and Plan: Echo shows LVEF 20-25%. This is a new diagnosis for heart failure with reduced ejection fraction. Continue with beta katheryn. His Coreg was switched to low dose Toprol due to soft blood pressures. Has improved with intermittent IV Lasix. Change to PO Lasix 40mg QD upon discharge. Due to low blood pressures, unable to start ARNI/ACEi/ARB, Aldactone at this time. Will work on GDMT as an outpatient. Will need eventual ischemic evaluation -- to be done as outpatient. Will arrange close follow up in our office. (2) Atrial fibrillation with rapid ventricular response: Code(s): I48.91 - Unspecified atrial fibrillation Status: Acute Assessment and Plan: Patient is currently rate controlled on tele. Continue beta katheryn. Continue Xarelto. Plan Patient really wants to go home today. No longer having shortness of breath, orthopnea. Lower extremity edema improving. He diureses well with Lasix. From my standpoint, can discharge home today with PO Lasix. Will arrange close follow up in our office to ensure he continues to improve. Recommendations/plan were discussed with the Hospitalist, Dr. Crawford. Subjective Date/time seen: 04/04/23 08:59 Interval history: Reason for visit: Decompensated heart failure, atrial fibrillation HPI: We are consulted for congestive heart failure and atrial fibrillation. This is a pleasant 72-year-old male with history of atrial fibrillation who presented to his PCP's office yesterday to establish care. Patient has been short of breath for the past 2 weeks. + Orthopnea. + Bilatera lower extremity edema. EKG obtained in PCP's office showed atrial fibrillation with RVR. Sent to the ER for further evaluation. BNP 12,000. Given IV Lasix. CXR with small bilateral pleural effusions. Patient states he is feeling better since hospital admission. Shortness of breath has improved. No chest pain, palpitations. Lower extremity edema improving. Date of service 04/03: No shortness of breath at rest or with exertion. Has been ambulating the hallways without symptoms. Lower extremity edema is improving. Continues to make good urine output. Date of service 04/04: No acute events overnight. Patient really wants to go home today. No shortness of breath. Continues to walk the hallways several times a day. Good urine output. Lower extremity edema improving. No orthopnea. Review of Systems Review of Systems: 8 point ROS obtained. Negative, unless stated in HPI. Exam Const: General: comfortable and no acute distress HENMT: Mouth: Yes moist mucous membranes Eyes: General: appearance normal, both eyes and all related structures Sclera: sclerae normal Neck: Neck: supple Resp: Effort & Inspection: normal respiratory effort Auscultation: clear to auscultation bilaterally Cardio: Rhythm: abnormal rhythm irregularly irregular Other: Improving bilateral lower extremity edema GI: GI Palp: Yes Soft to palpation and No Tenderness to palpation present (GI) Skin: General skin exam: normal color Neuro: Speech: normal speech Psych: Mental Status: mental status grossly normal Affect: normal affect Objective Data Vital Signs Vital Signs: Vital Signs - 24 hr 04/03/23 09:14 04/03/23 10:25 04/03/23 10:33 Temperature 36.6 C Pulse Rate 93 108 H Respiratory Rate 16 Blood Pressure 110/64 Pulse Oximetry 95 100 Oxygen Delivery Room Air 04/03/23 12:30 04/03/23 14:35 04/03/23 16:59 Temperature 36.6 C 36.4 C Pulse Rate 100 91 80 Respiratory Rate 18 20 Blood Pressure 103/73 116/77 Pulse Oximetry 98 97 Oxygen Delivery 04/03/23 16:00 04/03/23 19:47 04/03/23 20:00 Temperature 36.5 C Pulse Rate 104 H 90 90 Respiratory Rate 20 20 Blood Pressure 108/69 Pulse Oximetry 98 98 Oxygen Delivery
--- NOTE | 2023-04-04 12:00 | PM.DS ---
DS: Admitting Diagnosis Discharge Date 04/04/2023 Admitting Diagnosis Shortness of breath DS: Discharge Diagnosis Discharge Diagnosis (1) New onset of congestive heart failure: Code(s): I50.9 - Heart failure, unspecified Status: Acute (2) Atrial fibrillation with rapid ventricular response: Code(s): I48.91 - Unspecified atrial fibrillation Status: Acute (3) Benign essential hypertension: Code(s): I10 - Essential (primary) hypertension Status: Acute DS: Summary Hospital Course Hospital Course: shortness of breath over past couple weeks New onset congestive heart failure with orthopnea edema [place] [address].? Atrial fibrillation with rapid ventricular rate rate controlled restarted on carvedilol.? Started on Xarelto.? He used to be on Xarelto in the past but has stopped all his medication Cardiomegaly on x-ray echo ? With EF 20-25% moderate circumferential pericardial effusion moderate MR.? Because of blood pressure Coreg switched to Toprol unable to start JAVIER inhibitor / Arb ARB and spironolactone.? Ischemic evaluation as an outpatient basis ?discussed with cardiology. Okay to discharge per Cardiology Abnormal TSH follow-up as an outpatient basis.? Free T4? Is normal Lower extremity edema venous duplex negative for DVT on Lasix daily Code status full code DVT prophylaxis Xarelto Time Spent with Patient Time attestation: Total time spent providing and/or coordinating discharge services: 35 minutes Exam Narrative: General: Well-developed male sitting in a chair at the side of the bed in no distress. HEENT: Normocephalic, atraumatic. PERRL, EOMI. Sclera anicteric. Oral mucosa moist. Neck: Supple. No jugular venous distention or obvious carotid bruits. Respiratory: no respiratory distress. Lung sounds clear to auscultation Cardiovascular: Regular rate and rhythm with S1-S2. Gastrointestinal: Abdomen is soft, nontender, and nondistended with positive bowel sounds. Skin: Warm and dry. Extremities: No cyanosis or clubbing. 3+ tari ankle edema softening towards the knees. Radial and pedal pulses intact. Negative Rj sign bilaterally. Neurological: Alert. Cranial nerves 2-12 are grossly intact. No gross focal deficits to casual conversation. Psychiatric: Pleasant and cooperative with normal mood and affect. Judgment and insight intact. DS: Data Data Completed and Pending Completed studies during hospitalization: Exam Type: ? ? CA echo doppler color flow Study Info Indications ?? ? - chf/a-fib Complete two-dimensional, color flow and Doppler transthoracic echocardiogram is performed. Account #: ? ? [id number] Reason for Poor Study: ? ? poor patient cooperation Summary ? 1. Complete two-dimensional, color flow and Doppler transthoracic echocardiogram is performed. ? 2. Left ventricular chamber dimension is normal. ? 3. Left ventricular systolic function is severely reduced, estimated at 20-25%. ? 4. Right ventricular systolic function is normal. ? 5. Left atrial chamber dimension is moderately enlarged. ? 6. Right atrial chamber dimension is mildly enlarged. ? 7. There is moderate mitral valve regurgitation. ? 8. There is mild tricuspid valve regurgitation. ? 9. There is moderate circumferential pericardial effusion. No echocardiographic evidence of tamponade. Left Ventricle ? Left ventricular chamber dimension is normal. ? Left ventricular systolic function is severely reduced, estimated at 20-25%. ? There is no increased left ventricular wall thickness. Right Ventricle ? Right ventricular chamber dimension is normal. ? Right ventricular systolic function is normal. Left Atria ? Left atrial chamber dimension is moderately enlarged. Right Atria ? Right atrial chamber dimension is mildly enlarged. Atrial Septum ? Intact interatrial septum visualized by color flow imaging. Aortic Valve ? The aortic valve is trileaflet.
== END 2023-04-04 12:51 | disposition home or self-care (01) | DRG 291 ==
LOC: ANHED 14:47 → ANHIMU 16:51 → ANH2MED 04-03 09:28 → ANHIMU 04-06 14:54
PROVIDERS: Physician Assistant; Admitting Provider Family Medicine; Emergency Provider Emergency Medicine; PCP Family Medicine; Visit Provider Internal Medicine
DX: I11.0 Hypertensive heart disease with heart failure (principal); I50.21 Acute systolic (congestive) heart failure; I48.91 Unspecified atrial fibrillation; E78.2 Mixed hyperlipidemia; Z79.899 Other long term (current) drug therapy
CPT/HCPCS: 36415; 71046; 80048; 80053; 80061; 83735; 83880; 84153; 84439; 84443; 84480; 85025; 85055; 93005; 93306; 93970; 96374; 96376; 99285; A9270; G0103; G0378; J1940

== ENCOUNTER 2023-05-04 07:59 | Outpatient (CLI) | payer OTHER, SELFPAY ==
[2023-05-04 20:31] LABS: Thyroid Stimulating Hormone 0.049 uIU/mL (0.465-4.680)
[2023-05-08 03:55] LABS: Thyroid Peroxidase Antibodies 1 IU/mL (<9)
== END 2023-05-04 08:00 | disposition home or self-care (01) ==
LOC: ANHBWCLAB 08:03
PROVIDERS: PCP Family Medicine; Visit Provider Family Medicine
DX: I10 Essential (primary) hypertension (principal); I48.91 Unspecified atrial fibrillation; I50.9 Heart failure, unspecified; R73.03 Prediabetes; R79.89 Other specified abnormal findings of blood chemistry; R97.20 Elevated prostate specific antigen [PSA]
CPT/HCPCS: 36415; 84153; 84443; 86376; 93798; G0103

== ENCOUNTER 2023-05-07 15:00 | Outpatient (RCR) | payer OTHER, SELFPAY | END 2023-05-11 18:25 | disposition home or self-care (01) | LOC: ANHCPREHAB 15:00 | PROVIDERS: PCP Family Medicine; Visit Provider Family Medicine | DX: I50.89 Other heart failure (principal) | CPT/HCPCS: 93798 ==

== ENCOUNTER 2023-08-17 07:23 | Outpatient (CLI) | payer OTHER, SELFPAY ==
--- NOTE | ~2023-08-17 | US_ITS ---
Abdominal Sonogram: Real-time sonographic imaging of the abdomen was performed. Clinical History: Abnormal liver enzymes Findings: The liver appears normal with no evidence of mass lesion or bile duct dilatation. Main por rochelle vein demonstrates normal direction of flow. The spleen is normal in size without evidence of foca l lesion. The gallbladder is well distended, and contains echogenic, shadowing gallstones. Gallbladd er wall is minimally thickened to 4 mm. The common bile duct measures 2 mm. The visualized pancreas, aorta, and IVC are unremarkable. The right kidney measures 10.9 cm in length and the left kidney me asures 10.0 cm. There is no hydronephrosis. Probable nonobstructing left renal stones, largest measu ring 14 mm at the upper pole. Impression: Cholelithiasis. Minimal gallbladder wall thickening could reflect superimposed acute cholecystitis. C orrelate clinically. Consider HIDA scan as indicated. Probable nonobstructing left nephrolithiasis, as detailed above. Reviewed, dictated and finalized at location . Impression: Cholelithiasis. Minimal gallbladder wall thickening could reflect superimposed acute cholecystitis. Correlate clinically. Consider HIDA scan as indicated. Probable nonobstructing left nephrolithiasis, as detailed above.
== END 2023-08-17 07:24 | disposition home or self-care (01) ==
LOC: CHSIMG 07:28
PROVIDERS: PCP Internal Medicine; Visit Provider Internal Medicine
DX: R74.01 Elevation of levels of liver transaminase levels (principal); N18.30 Chronic kidney disease, stage 3 unspecified; K74.60 Unspecified cirrhosis of liver; K80.20 Calculus of gallbladder without cholecystitis without obstruction
CPT/HCPCS: 76700

== ENCOUNTER 2024-03-29 09:31 | Emergency (ER) | payer OTHER, SELFPAY ==
[2024-03-29] VITALS (21 sets, daily range): BP systolic 116–139; BP diastolic 80–106; PULSE 92–132; RESP 16–25; TEMP 36.6; O2SAT 94–97
--- NOTE | ~2024-03-29 | XR_ITS ---
XR chest 1V portable 03/29/2024 10:02 Indication: Shortness of breath. Procedure: AP portable chest Comparison: 04/01/2023 Findings: Moderate cardiomegaly. No focal air space disease, pulmonary edema, pleural effusion or cher pected pneumothorax. No acute osseous abnormality. Impression: 1: No acute cardiopulmonary disease. Reviewed, dictated and finalized at location B. Impression: 1: No acute cardiopulmonary disease.
--- NOTE | ~2024-03-29 | CT_ITS ---
EXAMINATION: CTA chest PE protocol DATE: 03/29/2024 11:02 INDICATION: Shortness of breath. TECHNIQUE: Computed tomography angiography (CTA) of the chest was performed with 100 mL Omnipaque-350 intravenous contrast timed to evaluate the pulmonary arteries. Coronal maximum intensity projection 3D-reconstructions were created by the technologist. Automated exposure control and iterative reconst ruction technique were employed. The dose-length product was 500.76 mGy-cm. COMPARISON: None. FINDINGS: The lungs demonstrate mild atelectasis. A calcified left lung nodule is consistent with old granulomatous disease. There are small pleural effusions, right worse than left. There is smooth sep rochelle thickening in the lungs, consistent mild pulmonary edema. Cardiomegaly is noted. There is a small pericardial effusion. There is no pulmonary embolus. There are cysts in the liver measuring up to 11 mm. Partially visualized calcifications in left kidney may be parenchymal. There are bridging endpla te osteophytes at multiple levels in the spine, consistent with diffuse idiopathic skeletal hyperosto sis (DISH). There is severe cervical spondylosis and mild thoracic spondylosis. IMPRESSION: 1. No pulmonary embolus. 2. Mild pulmonary edema. 3. Small pleural effusions. 4. Small pericardial effusion. Reviewed, dictated and finalized at location A.
--- NOTE | 2024-03-29 09:51 | ECG_ITS ---
SEE SCANNED COPY FOR CONFIRMED REPORT MTDD
--- NOTE | 2024-03-29 09:52 | ED.SOB ---
HPI - SOB/Dyspnea General Chief Complaint: Shortness of Breath/Dyspnea Stated Complaint: afib Time Seen by Provider: 03/29/24 09:32 Source: patient Mode of arrival: ambulatory Limitations: no limitations History of Present Illness HPI Narrative: Patient is a 73-year-old male with AFib not on any rate control or blood thinner per choice. He is here with elevated heart rate and shortness of breath. Primary doctor sent him from the clinic. Also he is having some orthopnea and PND last night. It appears he also has CHF as he is on Lasix regularly. He only takes aspirin and Lasix. Patient is reluctant to take medication for his problems based on our discussion. I did explain that the heart rate and the blood thinning needs are there to prevent future illness. Initial EKG does not show TN. MD elicited complaint: shortness of breath Pertinent past history: congestive heart failure and other ( AFib without medications) Onset (ago): day(s) (1) Context: medication noncompliance ( patient choice not to take blood thinner and does not remember about rate control medicine; patient is not on JAVIER-inhibitor or ARB) Timing: constant Severity: moderate Exacerbating factors: lying flat and exertion Relieving factors: nothing Known history of: congestive heart failure Associated symptoms: orthopnea Treatment prior to arrival: none Related Data Home oxygen amount: none Home Medications Medication Instructions Recorded Confirmed aspirin 81 mg tablet,delayed 81 mg PO DAILY 03/29/24 03/29/24 release furosemide 40 mg tablet (Lasix) 20 mg PO DAILY 03/29/24 03/29/24 Allergies Allergy/AdvReac Type Severity Reaction Status Date / Time No Known Allergies Allergy Mild Verified 03/29/24 09:47 Review of Systems Review of Systems: All systems reviewed & are unremarkable except as noted in HPI and below Constitutional: Constitutional: Reports no additional constitutional complaints Eyes: Eyes: Reports no additional eye complaints ENT: Reports system reviewed and no additional complaints, except as documented Cardiovascular: Cardiovascular: Reports no additional cardiovascular complaints Respiratory: Respiratory: Reports no additional respiratory complaints Gastrointestinal: Gastrointestinal: Reports no additional gastrointestinal complaints Genitourinary: Genitourinary: Reports no additional male genitourinary complaints Musculoskeletal: Musculoskeletal: Reports no additional musculoskeletal complaints Integumentary/Breasts: Skin/Breast: Reports system reviewed and no additional complaints, except as docu Neurologic: Reports system reviewed and no additional complaints, except as documented Psychiatric: Psychiatric: Reports no additional psychiatric complaints Endocrine: Endocrine: Reports no additional endocrine complaints Hematologic/Lymphatic: Hematologic/Lymphatic: Reports no additional hematologic/lymphatic complaints Allergic/Immunologic: Allergic/Immunologic: Reports no additional allergic/immunologic complaints PMFSH Past Medical History Medical History Benign essential hypertension Mixed hyperlipidemia Persistent atrial fibrillation Surgical History Surgical History No history of previous surgery Family History Family History Mother No problems noted. Father No problems noted. Other Unknown family medical history Social History Social History Social History: Surrogate medical decision maker: Lakhwinder Quigley, sister. Code status: Full code. Smoking status: Never smoker Second hand tobacco smoke exposure: Yes Alcohol intake: current Alcohol use details: 1 beer per month or less Substance use: never Substance use type: does not use Lack of Transportation: No
[2024-03-29] MEDS: dilTIAZem HCl INJ 25 MG/5 ML VIAL 10 MG IV PUSH (10:08)
[2024-03-29 10:10] LABS: Basophils Absolute Auto 0.04 K/mm3 (0.00-0.10); Basophils Percent Auto 0.6 % (0.0-1.0); Eosinophils Absolute Auto 0.03 K/mm3 (0.02-0.50); Eosinophils Percent Auto 0.5 % (1.0-6.0); Hematocrit 52.7 % (37.0-46.0); Immature Granulocyte Absolute 0.02 K/mm3 (0.00-0.00); Immature Granulocyte Percent A 0.3 % (0.0-0.0); Lymphocytes Absolute Auto 0.58 K/mm3 (1.10-4.50); Lymphocytes Percent Auto 9.3 % (18.0-42.0); Mean Corpuscular HGB Conc 32.3 g/dL (32-36); Mean Corpuscular Hemoglobin 30.7 pg (27.0-31.0); Mean Corpuscular Volume 95.1 fL (78.0-102.0); Mean Platelet Volume 11.2 fl (8.7-11.0); Monocytes Absolute Auto 0.55 K/mm3 (0.10-0.90); Monocytes Percent Auto 8.8 % (2.0-11.0); Neutrophils Absolute Auto 5.01 K/mm3 (1.70-7.20); Neutrophils Percent Auto 80.5 % (50.0-70.0); Platelet Count Result 160 K/mm3 (150-420); Red Blood Count 5.54 M/mm3 (4.70-6.10); Red Cell Distribution Width 16.8 % (11.6-14.4); White Blood Count 6.2 K/mm3 (4.8-10.8)
[2024-03-29 10:23] LABS: INR 1.1; Partial Thromboplastin Time 25.7 Sec (23.9-30.70); Prothrombin Time 12.4 Seconds (9.50-12.1)
[2024-03-29 10:27] LABS: D Dimer 1.21 mg/L (0.19-0.50)
[2024-03-29 10:32] LABS: Alanine Aminotransferase 50 U/L (16-63); Albumin Level 3.7 g/dL (3.4-5.0); Alkaline Phosphatase 83 U/L (46-116); Anion Gap 13 mmol/L (4-12); Aspartate Amino Transferase 46 U/L (15-37); Blood Urea Nitrogen 28 mg/dL (7-18); Calcium 9.6 mg/dL (8.5-10.1); Carbon Dioxide 26 mmol/L (21-32); Chloride 107 mmol/L (98-108); Estimated CRCL calculation 32 ml/min; Estimated Glomerular Filt Rate 34; Glucose 113 mg/dL (70-99); NT Pro B Type Natriuretic Pept 13271 pg/mL (0-125); Osmolality Calculated 308 mOsm/kg (285-295); Potassium 4.4 mmol/L (3.5-5.1); Sodium 146 mmol/L (136-145); Total Protein 7.2 g/dL (6.4-8.2)
[2024-03-29 10:34] LABS: Magnesium 2.3 mg/dL (1.8-2.4); Thyroid Stimulating Hormone 2.15 uIU/mL (0.36-3.74); Troponin I 36.5 ng/L (0.00-60.4)
--- NOTE | 2024-03-29 12:13 | PC.NURSE ---
PT DECLINED EMS TRANSPORT, REPORTS HE IS NOT LEAVING HIS CAR. PT SIGNS AMA AND IS TO TAKE HIMSELF TO [facility] FOR FURTHER EVALUATION.
== END 2024-03-29 12:10 | disposition left against medical advice (07) ==
PROVIDERS: Emergency Provider Emergency Medicine; PCP Internal Medicine
DX: I11.0 Hypertensive heart disease with heart failure (principal); I50.9 Heart failure, unspecified; I48.91 Unspecified atrial fibrillation; N17.9 Acute kidney failure, unspecified; E78.2 Mixed hyperlipidemia; Z91.148 Patient's other noncompliance with medication regimen for other reason; Z79.82 Long term (current) use of aspirin
CPT/HCPCS: 36415; 71045; 71275; 80053; 83735; 83880; 84443; 84484; 85025; 85380; 85610; 85730; 93005; 96374; 99284; Q9967

== ENCOUNTER 2024-03-29 14:17 | Inpatient (IN) | payer OTHER, MEDICARE, SELFPAY ==
[2024-03-29] VITALS (24 sets, daily range): BP systolic 97–133; BP diastolic 68–98; PULSE 85–140; RESP 12–25; TEMP 36.5–36.8; O2SAT 91–99; BMI 29.8
--- NOTE | ~2024-03-29 | US_ITS ---
EXAMINATION: US venous doppler [facility] DATE: 03/31/2024 14:37 INDICATION: Lower limb swelling. TECHNIQUE: Grayscale ultrasound images without and with compression and Doppler ultrasound images of the bilateral lower extremity veins were obtained. COMPARISON: Ultrasound 04/01/2023 FINDINGS: The visualized portions of right common femoral vein, profunda (deep) femoral vein, femoral vein, pop liteal vein, peroneal veins, posterior tibial veins, and greater saphenous vein outflow are patent. The visualized portions of left common femoral vein, profunda femoral vein, femoral vein, popliteal v ein, peroneal veins, posterior tibial veins, and greater saphenous vein outflow are patent. IMPRESSION: 1. No deep venous thrombosis. Reviewed, dictated and finalized at location A.
--- NOTE | 2024-03-29 14:24 | ECG_ITS ---
SEE SCANNED COPY FOR CONFIRMED REPORT MTDD
[2024-03-29 14:37] LABS: Basophils Absolute Auto 0.1 K/mm3 (0.0-0.1); Basophils Percent Auto 0.7 % (0.2-1.2); Eosinophils Percent Auto 0.1 % (0-4.4); Hematocrit 52.4 % (42.0-52.0); Hemoglobin 17.2 g/dL (14.0-18.0); Immature Granulocyte Absolute 0.02 K/mm3 (0.00-0.031); Immature Granulocyte Percent A 0.3 % (0-0.5); Lymphocytes Absolute Auto 0.56 K/mm3 (0.9-3.2); Lymphocytes Percent Auto 7.5 % (18.3-44.2); Mean Corpuscular HGB Conc 32.8 g/dl (32-36); Mean Corpuscular Hemoglobin 31.3 pg (26-34); Mean Corpuscular Volume 95.3 fl (80-100); Mean Platelet Volume 10.8 fl (7.4-10.4); Monocytes Absolute Auto 0.6 K/mm3 (0.1-0.6); Monocytes Percent Auto 7.9 % (2.6-8.5); Neutrophils Absolute Auto 6.2 K/mm3 (1.3-6.7); Neutrophils Percent Auto 83.5 % (45.5-73.1); Platelet Count Result 155 k/mm3 (150-375); Red Cell Distribution Width 17.7 % (11.5-14.5); White Blood Count 7.5 K/mm3 (4.5-10.0)
--- NOTE | 2024-03-29 14:44 | ED.SOB ---
HPI - SOB/Dyspnea General Chief Complaint: Shortness of Breath/Dyspnea Stated Complaint: chf Time Seen by Provider: 03/29/24 14:36 History of Present Illness HPI Narrative: Patient is a 73-year-old male with history of CHF, estimated ejection fraction around 40%, AFib, not on any rate-controlling medication or anticoagulation here with abnormal heart rate and shortness of breath. Patient states his symptoms have been present for the last 1-2 days. He endorses some heart fluttering as well as shortness of breath. He believed it was likely he lung issue and went to his primary care doctor today to discuss his symptoms. They did an EKG in the office and was found to be tachycardic and in AFib with RVR. He was stent to this [facility] emergency department. There he was found to be in heart failure as well as AFib with RVR. He was given a dose of cardizem with improvement of his HR and they discussed transfer to this hospital for admission for AFib with RVR and CHF exacerbation. Patient signed out against medical advice and drove himself here to the emergency department for additional evaluation and possible admission. Patient notes that he has had some improvement of his palpitations, has never experienced any chest pain. He takes 20 mg lasix daily as well as a baby aspirin. He notes he was previously on Coumadin however when he saw a new coater slate a few months ago they discussed that he should be on Xarelto and did not offer him the opportunity to be placed back on Coumadin, he did not appreciate that advice from his coater slate and is currently not taking any medications for his AFib because he cannot afford the Xarelto and disagreed with the coater slate. No recent cough, congestion, fever, chills. No sick contacts. Related Data Home Medications Medication Instructions Recorded Confirmed aspirin 81 mg tablet,delayed 81 mg PO DAILY 03/29/24 03/29/24 release furosemide 40 mg tablet (Lasix) 20 mg PO DAILY 03/29/24 03/29/24 Allergies Allergy/AdvReac Type Severity Reaction Status Date / Time No Known Allergies Allergy Mild Verified 03/29/24 14:41 Review of Systems Review of Systems: All systems reviewed & are unremarkable except as noted in HPI and below PMFSH Past Medical History Medical History (Updated 03/29/24 @ 22:47 by Camila Andrew MD) Benign essential hypertension Cardiomyopathy Mixed hyperlipidemia Paroxysmal atrial fibrillation Prediabetes Surgical History Surgical History No history of previous surgery Family History Family History Mother No problems noted. Father No problems noted. Other Unknown family medical history Social History Social History Social History: Surrogate medical decision maker: Lakhwinder Quigley, sister. Code status: Full code. Smoking status: Never smoker Second hand tobacco smoke exposure: Yes Alcohol intake: current Alcohol use details: 1 beer per month or less Substance use: never Substance use type: does not use Do You Feel Safe in your Home?: Yes Lack of Transportation: No Lack of Food: Never True Current Housing: I Have Housing Concerned About Future Housing: No Difficulty Paying Gas/Electric Bills: No Difficulty Paying for Meds: No Currently Unemployed: No Education: Master's Degree or Higher Difficulty w/ Childcare or Family Care: No Living arrangements: alone Occupation/Education: occupation Additional occupation/education comments: Works full-time at [employer]. Spiritual care concerns: No Exam Narrative: GENERAL: Well-appearing, well-nourished, and in no acute distress. HEAD: Normocephalic, atraumatic. EYES: PERRLA and EOMI. ENT: Nares clear. Mucous membranes moist. NECK: Supple. CHEST: Clear to auscultation. N
[2024-03-29 14:48] LABS: INR 1.2; Prothrombin Time 16.3 Seconds (11.1-14.7)
[2024-03-29 14:49] LABS: Partial Thromboplastin Time 27.8 Seconds (22.3-36.8)
[2024-03-29] MEDS: dilTIAZem HCl INJ 25 MG/5 ML VIAL 15 MG IV PUSH (14:53)
[2024-03-29 15:05] LABS: Alanine Aminotransferase 40 U/L (6-50); Albumin Level 4.3 g/dL (3.5-5.1); Alkaline Phosphatase 81 U/L (38-126); Anion Gap 10 mmol/L (4-12); Aspartate Amino Transferase 55 U/L (17-59); Bilirubin,Total 2.4 mg/dL (0.2-1.3); Calcium 9.9 mg/dL (8.4-10.2); Carbon Dioxide 21 mmol/L (22-30); Chloride 108 mmol/L (98-107); Estimated CRCL calculation 37 ml/min; Estimated Glomerular Filt Rate 40; Glucose 103 mg/dL (65-110); Potassium 4.7 mmol/L (3.4-5.0); Sodium 139 mmol/L (137-145)
[2024-03-29 15:12] LABS: NT Pro B Type Natriuretic Pept 15600 pg/mL (19.9-100); Troponin I 0.038 ng/mL (0.000-0.034)
[2024-03-29 15:13] LABS: Blood Urea Nitrogen 25 mg/dL (9-20)
[2024-03-29] MEDS: FUROSEMIDE INJ 40 MG/4 ML VIAL IV PUSH (15:24)
[2024-03-29] MEDS: dilTIAZem HCL 60 MG TABLET PO (15:27)
[2024-03-29] MEDS: ENOXAPARIN 100 MG/ML SYRINGE SUB-Q (16:21)
--- NOTE | 2024-03-29 16:32 | PM.IMHP ---
H&P: HPI History of Present Illness Date/Time: 03/29/24 17:00 Chief Complaint: Rapid heart rate and shortness of breath. Narrative: This is a 73-year-old male with paroxysmal atrial fibrillation not currently on anticoagulation due to cost, cardiomyopathy with an EF of 20 to 25% on echocardiogram in April 2023, hypertension, and hyperlipidemia who presented to the emergency department for evaluation of elevated heart rate and shortness of breath. The patient provides the following history. He has that he has been feeling great however yesterday he noticed that his legs had become extremely swollen and last night when he lay down to go to bed he was unable to lie flat due to severe shortness of breath. This has happened in the past and he was able to go sit in a chair and fall asleep however was unable to do so last night due to continued shortness of breath. He went to see his doctor this morning, was found to be in rapid atrial fibrillation, and was directed to the ED. He initially went to the emergency department in [place] where he was found to be in rapid atrial fibrillation with evidence of congestive heart failure. The patient did not want to be transferred by EMS and drove himself to [place]. He has no other complaints and denies syncope, near syncope, chest pain, pleuritic pain, palpitations, sensations of racing heart, nausea, vomiting, sweats, and calf pain. In the ED: He was in rapid atrial fibrillation on arrival with rates as high as 140. He was given 15 mg IV diltiazem with significant improvement in his rate though blood pressure did drop transiently to the 90s systolic. Labs were significant for a WBC count of 7.5, hemoglobin 17.2, INR 1.2, BUN 25, creatinine 1.70, troponin 0.038, proBNP 90115. Chest CTA done at the outside facility showed no evidence of pulmonary embolus but did note mild pulmonary edema, small pleural effusions, and small pericardial effusion. In addition to IV diltiazem he was given 40 mg IV furosemide and he is being admitted in this setting for further treatment and evaluation Review of Systems Review of Systems: 12 systems were reviewed and are negative except for as per HPI. [facility] Past Medical History Medical History (Updated 03/29/24 @ 16:34 by Susan Young PA-C) Benign essential hypertension Cardiomyopathy Mixed hyperlipidemia Paroxysmal atrial fibrillation Prediabetes Surgical History Surgical History No history of previous surgery Family History Family History Mother No problems noted. Father No problems noted. Other Unknown family medical history Social History Social History Social History: Surrogate medical decision maker: Lakhwinder Quigley, sister. Code status: Full code. Smoking status: Never smoker Second hand tobacco smoke exposure: Yes Alcohol intake: current Alcohol use details: 1 beer per month or less Substance use: never Substance use type: does not use Do You Feel Safe in your Home?: Yes Lack of Transportation: No Lack of Food: Never True Current Housing: I Have Housing Concerned About Future Housing: No Difficulty Paying Gas/Electric Bills: No Difficulty Paying for Meds: No Currently Unemployed: No Education: Master's Degree or Higher Difficulty w/ Childcare or Family Care: No Living arrangements: alone Occupation/Education: occupation Additional occupation/education comments: Works full-time at [employer]. Spiritual care concerns: No Meds Home Medications and Allergies Home Medications Medication Instructions Recorded Confirmed Type aspirin 81 mg tablet,delayed 81 mg PO DAILY 03/29/24 03/29/24 History release furosemide 40 mg tablet (Lasix) 20 mg PO DAILY 03/29/24 03/29/24 History Allergies Allerg
--- NOTE | 2024-03-29 19:50 | ADMGEN ---
This patient, Emre Quigley, was admitted to IMU Room 213-01 at 1656. Patient/family oriented to hospital policies and general routines including ID bracelet, bed and alarms, visiting hours, pain management, procedures, bathroom and other care routines, personal items, smoking policy, room service/diet, and visiting hours. Information on how to activate the Rapid Response Team has been discussed. Patient/Family are encouraged to report perceived risks to care and to ask questions if they do not understand what they are told or what they should do.
[2024-03-29 21:59] LABS: Magnesium 2.3 mg/dL (1.6-2.3); Phosphorus 3.6 mg/dL (2.5-4.5)
[2024-03-29 22:17] LABS: Troponin I 0.042 ng/mL (0.000-0.034)
[2024-03-29] MEDS: METOPROLOL TARTRATE 12.5 MG TABLET PO (22:47)
[2024-03-30] VITALS (20 sets, daily range): BP systolic 101–123; BP diastolic 68–86; PULSE 63–120; RESP 18–22; TEMP 35.8–36.6; O2SAT 96–99
--- NOTE | 2024-03-30 | ECHO_ITS ---
Patient Info Name: Emre Quigley Age: 73 years : 1950 Gender: Male Ht: 70 in Wt: 208 lbs BSA: 2.18 m2 HR: 104 bpm BP: 123 / 83 mmHg Heart Rhythm: Atrial Fibrillation Technical Quality: Fair Exam Date: 03/30/2024 12:56 PM Exam Location: Echo Lab Patient Status: Inpatient Admit Date: 03/29/2024 Staff Ordering Physician: Javan Horvath MD [employer] Vat Tender: Roc Ulloa RDCS Attending Provider: Stanislav Whiteside MD Referring Physician: Yuliet PARRISH; Exam Type: CA echo dop color flow w con Study Info Indications - afib - chf Complete two-dimensional, color flow and Doppler transthoracic echocardiogram is performed with contrast to opacify the left ventricle and to improve the deliniation of the left ventricle endocardial borders. Contrast/Agitated Saline Contrast/Ag. Saline: Definity Amount: 5.00 ml Summary 1. Left ventricular chamber dimension is severely enlarged. 2. Left ventricular systolic function is severely reduced, estimated at 15-20%. 3. There is mildly increased left ventricular wall thickness. 4. The left ventricular diastolic function is abnormal. 5. Left atrial chamber dimension is moderately enlarged. 6. Right atrial chamber dimension is mildly enlarged. 7. There is mild aortic valve regurgitation. 8. The mitral valve has thickened leaflets. 9. There is mild mitral valve regurgitation. 10. There is mild tricuspid valve regurgitation. 11. Mild pulmonary hypertension, estimated pulmonary arterial systolic pressure is 37 mmHg. 12. There is mild pulmonic regurgitation. 13. There is moderate pericardial effusion. 14. Dilated inferior vena cava with <50% collapse upon inspiration consistent with elevated right atrial pressure, 15 mmHg. 15. The aortic root size at the sinus of Valsalva is mildly dilated. Left Ventricle Left ventricular chamber dimension is severely enlarged. Left ventricular systolic function is severely reduced, estimated at 15-20%. There is mildly increased left ventricular wall thickness. The left ventricular diastolic function is abnormal. Right Ventricle Right ventricular chamber dimension is normal. Right ventricular systolic function is normal. Left Atria Left atrial chamber dimension is moderately enlarged. Right Atria Right atrial chamber dimension is mildly enlarged. Atrial Septum Intact interatrial septum visualized by color flow imaging. Aortic Valve The aortic valve is trileaflet. There is mild aortic valve sclerosis. There is no aortic valve stenosis. There is mild aortic valve regurgitation. Pulmonic Valve The pulmonic valve is normal. There is no pulmonic valve stenosis. There is mild pulmonic regurgitation. Mitral Valve The mitral valve has thickened leaflets. There is no mitral valve stenosis. There is mild mitral valve regurgitation. Tricuspid Valve The tricuspid valve leaflets are normal. There is no significant tricuspid valve stenosis. There is mild tricuspid valve regurgitation. Mild pulmonary hypertension, estimated pulmonary arterial systolic pressure is 37 mmHg. Pericardium/Pleural The pericardium appears normal. There is moderate pericardial effusion. Inferior Vena Cava Dilated inferior vena cava with <50% collapse upon inspiration consistent with elevated right atrial pressure, 15 mmHg. Aorta The aortic root size at the sinus of Valsalva is mildly dilated. The prox ascending aorta size is normal. Left Ventricular Outflow Tract Na
[2024-03-30 04:28] LABS: Hematocrit 47.3 % (42.0-52.0); Hemoglobin 15.4 g/dL (14.0-18.0); Mean Corpuscular HGB Conc 32.6 g/dl (32-36); Mean Corpuscular Hemoglobin 31.3 pg (26-34); Mean Corpuscular Volume 96.1 fl (80-100); Mean Platelet Volume 11.2 fl (7.4-10.4); Platelet Count Result 133 k/mm3 (150-375); Red Blood Count 4.92 M/mm3 (4.6-6.20); Red Cell Distribution Width 16.9 % (11.5-14.5); White Blood Count 5.2 K/mm3 (4.5-10.0)
[2024-03-30 04:44] LABS: Alanine Aminotransferase 37 U/L (6-50); Albumin Level 3.8 g/dL (3.5-5.1); Alkaline Phosphatase 69 U/L (38-126); Anion Gap 5 mmol/L (4-12); Aspartate Amino Transferase 47 U/L (17-59); Bilirubin,Total 2.6 mg/dL (0.2-1.3); Blood Urea Nitrogen 25 mg/dL (9-20); Calcium 9.1 mg/dL (8.4-10.2); Carbon Dioxide 28 mmol/L (22-30); Chloride 105 mmol/L (98-107); Estimated CRCL calculation 34 ml/min; Estimated Glomerular Filt Rate 37; Glucose 91 mg/dL (65-110); Magnesium 2.2 mg/dL (1.6-2.3); Sodium 138 mmol/L (137-145)
[2024-03-30] MEDS: BENZOCAINE/MENTHOL (*BKC) 18 EA LOZENGE 1 LOZENGE PO (06:26)
[2024-03-30] MEDS: ENOXAPARIN 100 MG/ML SYRINGE 95 MG SUB-Q (09:45)
[2024-03-30] MEDS: FUROSEMIDE INJ 40 MG/4 ML VIAL IV PUSH ×2 (09:46→16:26)
[2024-03-30] MEDS: METOPROLOL TARTRATE 12.5 MG TABLET PO (09:46)
--- NOTE | 2024-03-30 11:10 | PM.CNCAR ---
Assessment and Plan Assessment and plan (1) Acute exacerbation of CHF (congestive heart failure): Qualifiers: Heart failure type: unspecified Qualified Code(s): I50.9 - Heart failure, unspecified Code(s): I50.9 - Heart failure, unspecified Status: Acute Assessment and Plan: Acute exacerbation of CHF in part due to noncompliance with medications. Will transition to Toprol-XL 25 mg p.o. daily. Will start him on low-dose Entresto 24/26 mg 1 tablet p.o. b.i.d.. If he tolerates, start spironolactone tomorrow and Jardiance as an outpatient if able and cost effective. Continue diuresis with furosemide 40 mg IV b.i.d.. 2D echocardiogram Doppler will be ordered and reviewed. Follow electrolytes,I/Os and daily weights. Low-salt diet (2) Atrial fibrillation with rapid ventricular response: Code(s): I48.91 - Unspecified atrial fibrillation Status: Acute Assessment and Plan: Metoprolol succinate 25 mg p.o. daily. He is on anticoagulation in the form of enoxaparin. Will DC enoxaparin and transition to low-dose Xarelto 15 mg daily based upon renal function. DC aspirin (3) Elevated troponin: Code(s): R79.89 - Other specified abnormal findings of blood chemistry Status: Acute Assessment and Plan: Not related ACS. It is likely related to CHF and AFib (4) Cardiomyopathy: Code(s): I42.9 - Cardiomyopathy, unspecified Status: Acute Assessment and Plan: Previously severe. Repeat echo and medications as above (5) Benign essential hypertension: Code(s): I10 - Essential (primary) hypertension Status: Acute Assessment and Plan: At goal History of Present Illness History of Present Illness Consult date/time: 03/30/24 11:10 Requesting physician: Camila Andrew MD Consult reason: atrial fibrillation Reason For Visit: Afib RVR/CHF Exacerbation Narrative: Reason for consultation: Atrial fibrillation, CHF Date of service 03/30/2024 Requesting provider: Dr. Andrew History patient is a 73-year-old male for who has a history of paroxysmal atrial fibrillation. He was admitted in March of 2023 for atrial fibrillation, new onset heart failure with ejection fraction 20-25%. He was started on medical therapy however has essentially discontinued all of his medications except for his furosemide and a low-dose aspirin. He is not routinely followed up with his administrative staff supervisor. He states that he had been feeling pretty well until 2 days ago whenever he did not sleep all night due to significant shortness of breath whenever he tried to lay down. Describes orthopnea, paroxysmal nocturnal dyspnea and shortness of breath mild activity. He also has significant lower extremity swelling which also started about 2 days ago along with abdominal bloating. He had denies any chest pain, syncope, presyncope, palpitations. He saw Dr. Philip yesterday and [place] who found him to be in atrial fibrillation with rapid ventricular response and he was sent to the emergency department in [place]. He was then later transferred to [facility] for further evaluation and treatment. He feels a little bit better this point but still has significant swelling and shortness of breath. Review of Systems Review of Systems: All systems reviewed & are unremarkable except as noted in HPI and below Constitutional: Constitutional: Denies fatigue and Reports weakness Eyes: Eyes: Denies blurry vision ENT: Reports Normal hearing present Cardiovascular: Cardiovascular: Denies chest pain and Reports leg edema Respiratory: Respiratory: Reports dyspnea Gastrointestinal: Gastrointestinal: Reports bloating Genitourinary: Genitourinary: Denies hematuria Musculoskeletal: Musculoskeletal: Denies back pain and Denies arthralgias Integumentary/Breasts: Skin/Breast: Denies dry skin Neurologic: Denies Abnormal speech present Psychiatric: Psychiatric: Denies anxiety and Denies beha
[2024-03-30] MEDS: METOPROLOL SUCCINATE EXT REL 25 MG TABCR PO (12:36)
[2024-03-30] MEDS: PERFLUTREN LIPID MICROSPHERES 1.5 ML VIAL DILUTED TO 10 ML TOTAL VOLUME IV PUSH (13:32)
--- NOTE | 2024-03-30 13:32 | IVDEFINITY ---
Prior to administration of IV Definity the patient was educated on the risks and benefits of the imaging enhancing agent including potential adverse side effects. The patient verbalized understanding. Allergies were verified. No exclusion criteria were identified and at least one of the following inclusion criteria were met: 1) physician request, 2) patient technically difficult to image (per the [place] [employer] guidelines of two or more segments not discernable within the apical view), or 3) questionable left ventricular function. ?
--- NOTE | 2024-03-30 16:06 | PM.IMPN ---
Progress Note: A&P Assessment and Plan (1) Acute exacerbation of CHF (congestive heart failure): Qualifiers: Heart failure type: unspecified Qualified Code(s): I50.9 - Heart failure, unspecified Code(s): I50.9 - Heart failure, unspecified Status: Acute (2) Atrial fibrillation with rapid ventricular response: Code(s): I48.91 - Unspecified atrial fibrillation Status: Acute (3) Elevated troponin: Code(s): R79.89 - Other specified abnormal findings of blood chemistry Status: Acute (4) Cardiomyopathy: Code(s): I42.9 - Cardiomyopathy, unspecified Status: Acute Plan 69-year-old male with the past medical history paroxysmal atrial fibrillation not currently on anticoagulation due to cost/lost to follow-up, cardiomyopathy with an EF 20-25% on echo in April 2023, hypertension, hyperlipidemia presenting to ER for evaluation of elevated heart rate and shortness of breath and increasing leg swelling and orthopnea. The patient was seen for acute heart failure and atrial fibrillation in summer. He was discharged on Xarelto and Toprol and furosemide. He reports he has recently only been taking aspirin and furosemide. At 1 point his Xarelto was switched to warfarin due to cost. However he has not been taking blood thinner has been lost to follow-up (previously seeing Dr. Cherri An for PCP and Dr. 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 He is otherwise amenable to suggested therapy. Admitted on 03/29/2024 for further workup and treatment. CT on admission without pulmonary embolus. Acutely decompensated heart failure reduced ejection fraction, combined diastolic systolic dysfunction -continue recommendations per Cardiology. In part due to medical noncompliance and the patient has also been drinking a lot of water. Pending echo. -he previously saw Dr. Colvin and was happy with the care given. suggested to continue follow up with our [facility] cardiology group of [place] Atrial fibrillation with RVR -in part due to noncompliance. He has been started on metoprolol. He is amenable to using Xarelto now however we will check cost with care coordination. Elevated troponin -likely due to demand ischemia Cardiomyopathy -repeat echo pending. He was lost to follow-up in still needs ischemic evaluation. History of hypertension -monitor and adjust medications as per plans above. FEN: Saline lock IV. Heart healthy diet. GI prophylaxis: Not indicated DVT prophylaxis: Currently on Xarelto Lines: Peripheral IV Code Status: Full code Dispo: Able on telemetry floor. Subjective Date/time seen: 03/30/24 16:06 Interval history: No acute overnight events. Patient reports persistent lower extremity swelling. He believes his breathing is improved. Denies chest pain. Review of Systems Review of Systems: All systems reviewed & are unremarkable except as noted in HPI and below (Subjective) Exam Const: General: comfortable and no acute distress Other: A&O x3 Eyes: Pupils: Equal, round and reactive pupils present Neck: Neck: supple Resp: Effort & Inspection: normal respiratory effort Auscultation: clear to auscultation bilaterally Cardio: Rate: tachycardic Rhythm: abnormal rhythm Heart sounds: no gallops, no murmurs and no rubs GI: GI Palp: Yes Soft to palpation and No Tenderness to palpation present (GI) Extrem: General: edema (3+ pitting edema of the bilateral lower extremities distal to the knees) Objective Data Vital Signs Vital Signs: Vital Signs - 24 hr 03/29/24 16:15 03/29/24 16:57 03/29/24 18:00 Temperature Pulse Rate 92 94 Respiratory Rate 20 Blood Pressure 116/79 Pulse Oximetry 97 99 Oxygen Delivery 03/29/24 19:51 03/29/24 20:00 03/29/24 20:00 Temperature 97.7 F Pulse Rate 95 90 Respiratory Rate 18 Blood Pres
[2024-03-30] MEDS: RIVAROXABAN 15 MG TABLET PO (16:27)
[2024-03-30] MEDS: SACUBITRIL/VALSARTAN 24-26 MG TABLET 1 TAB PO (20:51)
[2024-03-30] MEDS: MELATONIN 5 MG TABLET PO (20:51)
[2024-03-31] VITALS (18 sets, daily range): BP systolic 87–112; BP diastolic 63–75; PULSE 86–122; RESP 16–20; TEMP 36.1–37; O2SAT 95–99
[2024-03-31 05:05] LABS: Hematocrit 47.4 % (42.0-52.0); Hemoglobin 15.4 g/dL (14.0-18.0); Mean Corpuscular HGB Conc 32.5 g/dl (32-36); Mean Corpuscular Volume 95.6 fl (80-100); Mean Platelet Volume 11.1 fl (7.4-10.4); Platelet Count Result 142 k/mm3 (150-375); Red Blood Count 4.96 M/mm3 (4.6-6.20); Red Cell Distribution Width 16.4 % (11.5-14.5)
[2024-03-31 05:09] LABS: Anion Gap 6 mmol/L (4-12); Blood Urea Nitrogen 25 mg/dL (9-20); Calcium 8.8 mg/dL (8.4-10.2); Carbon Dioxide 27 mmol/L (22-30); Chloride 105 mmol/L (98-107); Estimated CRCL calculation 36 ml/min; Estimated Glomerular Filt Rate 40; Glucose 93 mg/dL (65-110); Potassium 3.5 mmol/L (3.4-5.0); Sodium 138 mmol/L (137-145)
[2024-03-31] MEDS: FUROSEMIDE INJ 40 MG/4 ML VIAL IV PUSH ×2 (09:49→17:46)
[2024-03-31] MEDS: SACUBITRIL/VALSARTAN 24-26 MG TABLET 1 TAB PO ×2 (09:49→20:51)
[2024-03-31] MEDS: METOPROLOL SUCCINATE EXT REL 25 MG TABCR PO (09:50)
--- NOTE | 2024-03-31 11:47 | PM.IMPN ---
Progress Note: A&P Assessment and Plan (1) Acute exacerbation of CHF (congestive heart failure): Qualifiers: Heart failure type: unspecified Qualified Code(s): I50.9 - Heart failure, unspecified Code(s): I50.9 - Heart failure, unspecified Status: Acute (2) Atrial fibrillation with rapid ventricular response: Code(s): I48.91 - Unspecified atrial fibrillation Status: Acute (3) Elevated troponin: Code(s): R79.89 - Other specified abnormal findings of blood chemistry Status: Acute (4) Cardiomyopathy: Code(s): I42.9 - Cardiomyopathy, unspecified Status: Acute Plan 69-year-old male with the past medical history paroxysmal atrial fibrillation not currently on anticoagulation due to cost/lost to follow-up, cardiomyopathy with an EF 20-25% on echo in April 2023, hypertension, hyperlipidemia presenting to ER for evaluation of elevated heart rate and shortness of breath and increasing leg swelling and orthopnea. The patient was seen for acute heart failure and atrial fibrillation in summer. He was discharged on Xarelto and Toprol and furosemide. He reports he has recently only been taking aspirin and furosemide. At 1 point his Xarelto was switched to warfarin due to cost. However he has not been taking blood thinner has been lost to follow-up (previously seeing Dr. Cherri An for PCP and Dr. 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 He is otherwise amenable to suggested therapy. Admitted on 03/29/2024 for further workup and treatment. CT on admission without pulmonary embolus. Acutely decompensated heart failure reduced ejection fraction, combined diastolic systolic dysfunction -In part due to medical noncompliance and the patient has also been drinking a lot of water. -currently on Lasix 40 mg IV b.i.d.. His lower extremity 3+ edema remains the same. Will check Doppler ultrasound lower extremities. His main concern is that does not like the physical appearance of his legs. Start graduated compression stockings. -otherwise continue to appreciate Cardiology recommendations for guideline directed medical therapy -he previously saw Dr. Colvin and was happy with the care given. suggested to continue follow up with our [facility] cardiology group of [place] Atrial fibrillation with RVR -in part due to noncompliance. He has been started on metoprolol. He is amenable to using Xarelto now however we will check cost with care coordination. Pending results of their investigation -telemetry demonstrating RVR in 100s to 110s. Cardiology increasing metoprolol on 03/31 Elevated troponin -likely due to demand ischemia Cardiomyopathy -he was lost to follow-up in still needs make evaluation at some point. Again, follow-up with cardiology outpatient -surface echocardiogram demonstrates EF 15-20% on 03/30/24 History of hypertension -monitor and adjust medications as per plans above. FEN: Saline lock IV. Heart healthy diet. GI prophylaxis: Not indicated DVT prophylaxis: Currently on Xarelto Lines: Peripheral IV Code Status: Full code Dispo: Stable on telemetry floor. Transfer to medical telemetry floor. Subjective Date/time seen: 03/31/24 11:47 Interval history: No acute overnight events. Patient denies complaints other than that he is mostly concerned about the swelling in his legs. He wanted to go down. Review of Systems Review of Systems: All systems reviewed & are unremarkable except as noted in HPI and below (Subjective) Exam Const: General: comfortable and no acute distress Other: A&O x3 Eyes: Pupils: Equal, round and reactive pupils present Neck: Neck: supple Resp: Effort & Inspection: normal respiratory effort Auscultation: clear to auscultation bilaterally Cardio: Rate: tachycardic Rhythm: abnormal rhythm Heart sounds: no gallops, no murmur
--- NOTE | 2024-03-31 12:04 | PM.PNCARD ---
Progress Note: A&P Assessment and Plan (1) Acute exacerbation of CHF (congestive heart failure): Qualifiers: Heart failure type: unspecified Qualified Code(s): I50.9 - Heart failure, unspecified Code(s): I50.9 - Heart failure, unspecified Status: Acute Assessment and Plan: Acute exacerbation of CHF in part due to noncompliance with medications. Will transition to Toprol-XL 50 mg p.o. daily. Entresto 24/26 mg 1 tablet p.o. b.i.d.. Continue diuresis with furosemide 40 mg IV b.i.d.. May transition to oral tomorrow if leg edema is improved. JESSICA swift Follow electrolytes,I/Os and daily weights. Low-salt diet (2) Atrial fibrillation with rapid ventricular response: Code(s): I48.91 - Unspecified atrial fibrillation Status: Acute Assessment and Plan: Increase Metoprolol succinate 50 mg p.o. daily and give additional metoprolol 25mg now as he remains tachycardic. Continue Xarelto 15 mg daily based upon renal function. DC aspirin (3) Elevated troponin: Code(s): R79.89 - Other specified abnormal findings of blood chemistry Status: Acute Assessment and Plan: Not related ACS. It is likely related to CHF and AFib (4) Cardiomyopathy: Code(s): I42.9 - Cardiomyopathy, unspecified Status: Acute Assessment and Plan: EF 15-20% Resuming standard GDMT with Entresto, Toprol. Adding jardiance and spironolactone today (5) Benign essential hypertension: Code(s): I10 - Essential (primary) hypertension Status: Acute Assessment and Plan: At goal Subjective Date/time seen: 03/31/24 12:04 Interval history: Cardiology follow up for cardiomyopathy, CHF, Afib Continues to feel well. He still has bilateral lower extremity pitting edema. No shortness of breath, chest pain, palpitations. Review of Systems Review of Systems: All systems reviewed & are unremarkable except as noted in HPI and below Constitutional: Constitutional: Denies excessive sweating, Denies fatigue and Reports weakness Eyes: Eyes: Denies blurry vision ENT: Reports Normal hearing present Cardiovascular: Cardiovascular: Denies chest pain, Reports leg edema and Reports dyspnea Respiratory: Respiratory: Reports dyspnea Gastrointestinal: Gastrointestinal: Reports bloating Genitourinary: Genitourinary: Denies hematuria Musculoskeletal: Musculoskeletal: Denies back pain and Denies arthralgias Integumentary/Breasts: Skin/Breast: Denies dry skin Neurologic: Reports Normal hearing present, Denies Abnormal speech present, Denies behavioral changes and Reports weakness Psychiatric: Psychiatric: Denies anxiety and Denies behavioral changes Endocrine: Endocrine: Denies excessive sweating and Denies fatigue Hematologic/Lymphatic: Hematologic/Lymphatic: Denies easy bleeding Allergic/Immunologic: Allergic/Immunologic: Denies GI upset with certain foods Exam Narrative: alert and oriented appears stated age Const: General: comfortable and no acute distress HENMT: Face/Nose/Sinus: Normal nares present Mouth: Yes moist mucous membranes Eyes: General: appearance normal, both eyes and all related structures Sclera: sclerae normal Neck: Neck: supple and no JVD Resp: Effort & Inspection: normal respiratory effort Auscultation: clear to auscultation bilaterally Cardio: Rate: tachycardic Rhythm: abnormal rhythm irregularly irregular Heart sounds: no murmurs GI: Inspection: non-distended Auscultation: normal bowel sounds Skin: General skin exam: normal color and no rashes or lesions noted Neuro: General: gait normal Cranial nerves: Yes Normal hearing present Speech: normal speech and No Abnormal speech present Sensory Exam: normal sensation Extrem: General: edema Other: 2+ BLE edema Psych: Mental Status: mental status grossly normal Affect: normal affect Objective Data Vital Signs Vital Signs: Vital Signs - 24 hr
[2024-03-31] MEDS: METOPROLOL TARTRATE 25 MG TABLET PO (12:34)
[2024-03-31] MEDS: SPIRONOLACTONE 25 MG TABLET PO (17:44)
[2024-03-31] MEDS: RIVAROXABAN 15 MG TABLET PO (17:46)
[2024-03-31] MEDS: MELATONIN 5 MG TABLET PO (20:51)
[2024-04-01] VITALS (15 sets, daily range): BP systolic 69–130; BP diastolic 47–103; PULSE 89–110; RESP 16–20; TEMP 36–36.6; O2SAT 96–99
[2024-04-01 04:20] LABS: Hematocrit 51.1 % (42.0-52.0); Immature Platelet Fraction Pct 4.9 % (0.9-11.2); Mean Corpuscular HGB Conc 33.3 g/dl (32-36); Mean Corpuscular Hemoglobin 31.4 pg (26-34); Mean Corpuscular Volume 94.5 fl (80-100); Mean Platelet Volume 11.1 fl (7.4-10.4); Platelet Count Result 134 k/mm3 (150-375); Red Blood Count 5.41 M/mm3 (4.6-6.20); Red Cell Distribution Width 16.4 % (11.5-14.5); White Blood Count 4.7 K/mm3 (4.5-10.0)
[2024-04-01 04:40] LABS: Anion Gap 6 mmol/L (4-12); Blood Urea Nitrogen 28 mg/dL (9-20); Calcium 8.9 mg/dL (8.4-10.2); Carbon Dioxide 26 mmol/L (22-30); Chloride 106 mmol/L (98-107); Estimated CRCL calculation 36 ml/min; Estimated Glomerular Filt Rate 40; Glucose 92 mg/dL (65-110); Magnesium 2.1 mg/dL (1.6-2.3); Potassium 3.6 mmol/L (3.4-5.0); Sodium 138 mmol/L (137-145)
[2024-04-01] MEDS: FUROSEMIDE INJ 40 MG/4 ML VIAL IV PUSH (09:07)
[2024-04-01] MEDS: EMPAGLIFLOZIN 10 MG TABLET PO (09:07)
[2024-04-01] MEDS: SPIRONOLACTONE 25 MG TABLET PO (09:07)
[2024-04-01] MEDS: SACUBITRIL/VALSARTAN 24-26 MG TABLET 1 TAB PO (09:07)
[2024-04-01] MEDS: METOPROLOL SUCCINATE EXT REL 50 MG TABCR PO (09:08)
--- NOTE | 2024-04-01 09:18 | PM.PNCARD ---
Progress Note: A&P Assessment and Plan (1) Acute exacerbation of CHF (congestive heart failure): Qualifiers: Heart failure type: unspecified Qualified Code(s): I50.9 - Heart failure, unspecified Code(s): I50.9 - Heart failure, unspecified Status: Acute Assessment and Plan: Acute exacerbation of CHF in part due to noncompliance with medications. Continue Toprol-XL, will increase to 75 mg p.o. daily Entresto 24/26 mg 1 tablet p.o. b.i.d.. Continue diuresis with furosemide. Edema significantly improved in the last 24 hours. Will shift to p.o. furosemide today. JESSICA hose Follow electrolytes,I/Os and daily weights. Low-salt diet Anticipate discharge in the next 24-48 hours. (2) Atrial fibrillation with rapid ventricular response: Code(s): I48.91 - Unspecified atrial fibrillation Status: Acute Assessment and Plan: Increase Metoprolol succinate 75 mg p.o. daily. Continue Xarelto 15 mg daily based upon renal function. (3) Elevated troponin: Code(s): R79.89 - Other specified abnormal findings of blood chemistry Status: Acute Assessment and Plan: Not related ACS. It is likely related to CHF and AFib (4) Cardiomyopathy: Code(s): I42.9 - Cardiomyopathy, unspecified Status: Acute Assessment and Plan: EF 15-20% Resuming standard GDMT with Entresto, Toprol. Tolerating addition of entresto and jardiance (5) Benign essential hypertension: Code(s): I10 - Essential (primary) hypertension Status: Acute Assessment and Plan: At goal Subjective Date/time seen: 04/01/24 09:18 Interval history: Cardiology follow up for cardiomyopathy, CHF, Afib Continues to feel well. He still has bilateral lower extremity pitting edema. No shortness of breath, chest pain, palpitations. Date of service 04/01/2024: Continues to feel well today. No chest pain, palpitations, shortness of breath. His edema has significantly improved with compression stockings. Review of Systems Review of Systems: All systems reviewed & are unremarkable except as noted in HPI and below Constitutional: Constitutional: Denies excessive sweating, Denies fatigue and Reports weakness Eyes: Eyes: Denies blurry vision ENT: Reports Normal hearing present Cardiovascular: Cardiovascular: Denies chest pain, Reports leg edema and Reports dyspnea Respiratory: Respiratory: Reports dyspnea Gastrointestinal: Gastrointestinal: Reports bloating Genitourinary: Genitourinary: Denies hematuria Musculoskeletal: Musculoskeletal: Denies back pain and Denies arthralgias Integumentary/Breasts: Skin/Breast: Denies dry skin Neurologic: Reports Normal hearing present, Denies Abnormal speech present, Denies behavioral changes and Reports weakness Psychiatric: Psychiatric: Denies anxiety and Denies behavioral changes Endocrine: Endocrine: Denies excessive sweating and Denies fatigue Hematologic/Lymphatic: Hematologic/Lymphatic: Denies easy bleeding Allergic/Immunologic: Allergic/Immunologic: Denies GI upset with certain foods Exam Narrative: alert and oriented appears stated age Const: General: comfortable and no acute distress HENMT: Face/Nose/Sinus: Normal nares present Mouth: Yes moist mucous membranes Eyes: General: appearance normal, both eyes and all related structures Sclera: sclerae normal Neck: Neck: supple and no JVD Chest: Other: no reproducible chest wall pain Resp: Effort & Inspection: normal respiratory effort Auscultation: clear to auscultation bilaterally Cardio: Rate: regular rate Rhythm: abnormal rhythm irregularly irregular Heart sounds: no murmurs GI: Inspection: non-distended Auscultation: normal bowel sounds Skin: General skin exam: normal color and no rashes or lesions noted Neuro: General: gait normal Cranial nerves: Yes Normal hearing present Speech: normal speech and No Abnormal speech present
[2024-04-01] MEDS: SODIUM CHLORIDE 0.9% IV 250 ML 125 ML IV CONT ×2 (13:14→18:02)
--- NOTE | 2024-04-01 17:44 | PM.IMPN ---
Progress Note: A&P Assessment and Plan (1) Acute exacerbation of CHF (congestive heart failure): Qualifiers: Heart failure type: unspecified Qualified Code(s): I50.9 - Heart failure, unspecified Code(s): I50.9 - Heart failure, unspecified Status: Acute (2) Atrial fibrillation with rapid ventricular response: Code(s): I48.91 - Unspecified atrial fibrillation Status: Acute (3) Elevated troponin: Code(s): R79.89 - Other specified abnormal findings of blood chemistry Status: Acute (4) Cardiomyopathy: Code(s): I42.9 - Cardiomyopathy, unspecified Status: Acute Plan 69-year-old male with the past medical history paroxysmal atrial fibrillation not currently on anticoagulation due to cost/lost to follow-up, cardiomyopathy with an EF 20-25% on echo in April 2023, hypertension, hyperlipidemia presenting to ER for evaluation of elevated heart rate and shortness of breath and increasing leg swelling and orthopnea. The patient was seen for acute heart failure and atrial fibrillation in summer. He was discharged on Xarelto and Toprol and furosemide. He reports he has recently only been taking aspirin and furosemide. At 1 point his Xarelto was switched to warfarin due to cost. However he has not been taking blood thinner has been lost to follow-up (previously seeing Dr. Cherri An for PCP and Dr. Colvin for cardiology) due to his dissatisfaction with seeing mid levels and having long wait times at medical receptionist medical assistant desk and in waiting rooms. He is otherwise amenable to suggested therapy. Admitted on 03/29/2024 for further workup and treatment. CT on admission without pulmonary embolus. Acutely decompensated heart failure reduced ejection fraction, combined diastolic systolic dysfunction -In part due to medical noncompliance and the patient has also been drinking a lot of water. -currently on Lasix 40 mg IV b.i.d.. His lower extremity 3+ edema remains the same. Venous duplex lower extremity negative for DVT. His main concern is that does not like the physical appearance of his legs. Start graduated compression stockings. -otherwise continue to appreciate Cardiology recommendations for guideline directed medical therapy -he previously saw Dr. Colvin and was happy with the care given. suggested to continue follow up with our [facility] cardiology group of [place] Atrial fibrillation with RVR -in part due to noncompliance. He has been started on metoprolol. He is amenable to using Xarelto now however we will check cost with care coordination. Pending results of their investigation -telemetry demonstrating RVR in 100s to 110s. Cardiology increasing metoprolol on 03/31 Elevated troponin -likely due to demand ischemia Cardiomyopathy -he was lost to follow-up in still needs make evaluation at some point. Again, follow-up with cardiology outpatient -surface echocardiogram demonstrates EF 15-20% on 03/30/24 On goal-directed medical therapy however hypotension issues present. History of hypertension -monitor and adjust medications as per plans above. FEN: Saline lock IV. Heart healthy diet. GI prophylaxis: Not indicated DVT prophylaxis: Currently on Xarelto Lines: Peripheral IV Code Status: Full code Dispo: Continue IMU Subjective Date/time seen: 04/01/24 17:44 Interval history: Feeling better. Admitted with acute on chronic congestive heart failure however defers any symptoms related to this. No chest pain or shortness of breath. Did report lower extremity edema for which he is currently on Anders hose. Review of Systems Review of Systems: All systems reviewed & are unremarkable except as noted in HPI and below (Subjective) Exam Narrative: General:??Well-developed male sitting at the side of the bed in no distress. HEENT:?Wearing glasses. PERRL, EOMI. Sclera anicteric.? Oral mucosa moist.? Neck:??Supple. No significant jugular venous distension. Respiratory:?Respiratio
[2024-04-01] MEDS: RIVAROXABAN 15 MG TABLET PO (19:01)
[2024-04-02] VITALS (19 sets, daily range): BP systolic 86–101; BP diastolic 58–73; PULSE 88–112; RESP 12–20; TEMP 35.9–37.1; O2SAT 94–98
[2024-04-02 04:29] LABS: Basophils Absolute Auto 0.1 K/mm3 (0.0-0.1); Basophils Percent Auto 1.2 % (0.2-1.2); Eosinophils Absolute Auto 0.1 K/mm3 (0-0.3); Eosinophils Percent Auto 2.8 % (0-4.4); Hematocrit 49.5 % (42.0-52.0); Hemoglobin 16.3 g/dL (14.0-18.0); Immature Granulocyte Absolute 0.02 K/mm3 (0.00-0.031); Immature Granulocyte Percent A 0.5 % (0-0.5); Lymphocytes Absolute Auto 0.81 K/mm3 (0.9-3.2); Lymphocytes Percent Auto 19.1 % (18.3-44.2); Mean Corpuscular HGB Conc 32.9 g/dl (32-36); Mean Corpuscular Hemoglobin 31.3 pg (26-34); Mean Corpuscular Volume 95.2 fl (80-100); Monocytes Absolute Auto 0.5 K/mm3 (0.1-0.6); Monocytes Percent Auto 12.5 % (2.6-8.5); Neutrophils Absolute Auto 2.7 K/mm3 (1.3-6.7); Neutrophils Percent Auto 63.9 % (45.5-73.1); Platelet Count Result 144 k/mm3 (150-375); Red Cell Distribution Width 16.1 % (11.5-14.5); White Blood Count 4.2 K/mm3 (4.5-10.0)
[2024-04-02 04:42] LABS: Alanine Aminotransferase 34 U/L (6-50); Albumin Level 3.4 g/dL (3.5-5.1); Alkaline Phosphatase 63 U/L (38-126); Anion Gap 4 mmol/L (4-12); Aspartate Amino Transferase 40 U/L (17-59); Bilirubin,Total 1.4 mg/dL (0.2-1.3); Blood Urea Nitrogen 29 mg/dL (9-20); Calcium 8.8 mg/dL (8.4-10.2); Carbon Dioxide 28 mmol/L (22-30); Chloride 106 mmol/L (98-107); Estimated CRCL calculation 34 ml/min; Estimated Glomerular Filt Rate 37; Glucose 92 mg/dL (65-110); Magnesium 2.2 mg/dL (1.6-2.3); Potassium 3.8 mmol/L (3.4-5.0); Sodium 138 mmol/L (137-145)
[2024-04-02 08:53] LABS: INR 1.9; Prothrombin Time 22.4 Seconds (11.1-14.7)
--- NOTE | 2024-04-02 12:09 | PM.PNCARD ---
Progress Note: A&P Assessment and Plan (1) Acute on chronic heart failure with reduced ejection fraction and diastolic dysfunction: Code(s): I50.43 - Acute on chronic combined systolic (congestive) and diastolic (congestive) heart failure Status: Acute Assessment and Plan: Acute on chronic exacerbation of CHF in part due to noncompliance with medications. Continue Toprol-XL Continue Entresto 24/26mg BID Continue Jardiance 10mg once daily Continue Spironolactone 25mg once daily. Was started on Lasix 80mg BID PO, however, will decrease dose of Lasix to 40mg once daily as patient has been started on Entresto now and to avoid hypotension. JESSICA hose Follow electrolytes,I/Os and daily weights. Low-salt diet Anticipate discharge in the next 24-48 hours. (2) Atrial fibrillation with rapid ventricular response: Code(s): I48.91 - Unspecified atrial fibrillation Status: Acute Assessment and Plan: Continue Metoprolol for rate control. Patient would like to switch from Xarelto to Warfarin due to cost issues. This is okay with me. (3) Elevated troponin: Code(s): R79.89 - Other specified abnormal findings of blood chemistry Status: Acute Assessment and Plan: Not related ACS. It is likely related to CHF and AFib (4) Benign essential hypertension: Code(s): I10 - Essential (primary) hypertension Status: Acute Assessment and Plan: At goal Plan Recommendations and plan discussed with Hospitalist. Subjective Date/time seen: 04/02/24 12:09 Interval history: Cardiology follow up for cardiomyopathy, CHF, AFIB Has some bilateral lower extremity edema that is improving, wearing compression stockings. He otherwise feels well. Would like to do Warfarin instead of Xarelto due to cost issues. His heart failure GDMT was placed on hold due to asymptomatic hypotension with SBPs as low as 69mmHg. Review of Systems Review of Systems: All systems reviewed & are unremarkable except as noted in HPI and below (HPI) Exam Const: General: comfortable and no acute distress HENMT: Mouth: Yes moist mucous membranes Eyes: General: appearance normal, both eyes and all related structures Sclera: sclerae normal Neck: Neck: supple Resp: Effort & Inspection: normal respiratory effort Cardio: Rhythm: abnormal rhythm irregularly irregular Other: Bilateral lower extremity edema, wearing compression stockings Skin: General skin exam: normal color Neuro: Speech: normal speech Psych: Mental Status: mental status grossly normal Affect: normal affect Objective Data Vital Signs Vital Signs: Vital Signs - 24 hr 04/01/24 15:25 04/01/24 15:00 04/01/24 16:00 Temperature 36.0 C L Pulse Rate 91 104 H Respiratory Rate 20 Blood Pressure 78/52 L 85/57 L Pulse Oximetry 99 Oxygen Delivery 04/01/24 20:00 04/01/24 20:00 04/01/24 20:00 Temperature 36.6 C Pulse Rate 91 105 H Respiratory Rate 16 Blood Pressure 130/103 H Pulse Oximetry 99 Oxygen Delivery Room Air 04/01/24 23:27 04/02/24 00:00 04/02/24 00:17 Temperature 36.3 C L 36.3 C L Pulse Rate 95 95 Respiratory Rate 16 16 Blood Pressure 92/60 L 92/60 L Pulse Oximetry 98 98 Oxygen Delivery Room Air 04/02/24 00:00 04/02/24 01:43 04/02/24 04:00 Temperature Pulse Rate 112 H 112 H Respiratory Rate Blood Pressure Pulse Oximetry Oxygen Delivery Room Air 04/02/24 04:00 04/02/24 04:00 04/02/24 06:00 Temperature 36.9 C Pulse Rate 92 95 92 Respiratory Rate 12 Blood Pressure 91/60 L Pulse Oximetry 94 Oxygen Delivery 04/02/24 08:03 04/02/24 11:31 04/02/24 08:00 Temperature 35.9 C L 36.2 C L Pulse Rate 93 101 H 103 H Respiratory Rate 18 18 Blood Pressure 99/69 L 101/58 L Pulse Oximetry 96 97 Oxygen Delivery 04/02/24 10:00 04/02/24 08:00 Temperature Pulse Rate 104 H Respiratory Rate Blood Pressure Puls
[2024-04-02] MEDS: SPIRONOLACTONE 25 MG TABLET PO (13:18)
[2024-04-02] MEDS: EMPAGLIFLOZIN 10 MG TABLET PO (13:19)
[2024-04-02] MEDS: SACUBITRIL/VALSARTAN 24-26 MG TABLET 1 TAB PO ×2 (13:19→20:42)
[2024-04-02] MEDS: METOPROLOL SUCCINATE EXT REL 25 MG TABCR 75 MG PO (13:19)
[2024-04-02] MEDS: FUROSEMIDE 40 MG TABLET PO (13:19)
--- NOTE | 2024-04-02 13:58 | PM.IMPN ---
Progress Note: A&P Assessment and Plan (1) Acute exacerbation of CHF (congestive heart failure): Qualifiers: Heart failure type: unspecified Qualified Code(s): I50.9 - Heart failure, unspecified Code(s): I50.9 - Heart failure, unspecified Status: Acute (2) Atrial fibrillation with rapid ventricular response: Code(s): I48.91 - Unspecified atrial fibrillation Status: Acute (3) Elevated troponin: Code(s): R79.89 - Other specified abnormal findings of blood chemistry Status: Acute (4) Cardiomyopathy: Code(s): I42.9 - Cardiomyopathy, unspecified Status: Acute Plan 69-year-old male with the past medical history paroxysmal atrial fibrillation not currently on anticoagulation due to cost/lost to follow-up, cardiomyopathy with an EF 20-25% on echo in April 2023, hypertension, hyperlipidemia presenting to ER for evaluation of elevated heart rate and shortness of breath and increasing leg swelling and orthopnea. The patient was seen for acute heart failure and atrial fibrillation in summer. He was discharged on Xarelto and Toprol and furosemide. He reports he has recently only been taking aspirin and furosemide. At 1 point his Xarelto was switched to warfarin due to cost. However he has not been taking blood thinner has been lost to follow-up (previously seeing Dr. Cherri An for PCP and Dr. Colvin for cardiology) due to his dissatisfaction with seeing mid levels and having long wait times at steward dishwasher desk and in waiting rooms. He is otherwise amenable to suggested therapy. Admitted on 03/29/2024 for further workup and treatment. CT on admission without pulmonary embolus. Acutely decompensated heart failure reduced ejection fraction, combined diastolic systolic dysfunction -In part due to medical noncompliance and the patient has also been drinking a lot of water. -currently on Lasix 40 mg IV b.i.d.. His lower extremity 3+ edema remains the same. Venous duplex lower extremity negative for DVT. His main concern is that does not like the physical appearance of his legs. Start graduated compression stockings. -otherwise continue to appreciate Cardiology recommendations for guideline directed medical therapy -he previously saw Dr. Colvin and was happy with the care given. suggested to continue follow up with our [facility] cardiology group of [place] Atrial fibrillation with RVR -in part due to noncompliance. He has been started on metoprolol. He is amenable to using Xarelto now however we will check cost with care coordination. Pending results of their investigation -telemetry demonstrating RVR in 100s to 110s. Cardiology increasing metoprolol on 03/31 Does not want to be on Xarelto will switch to warfarin however needs to be bridged Elevated troponin -likely due to demand ischemia Cardiomyopathy -he was lost to follow-up in still needs make evaluation at some point. Again, follow-up with cardiology outpatient -surface echocardiogram demonstrates EF 15-20% on 03/30/24 On goal-directed medical therapy however hypotension issues present. History of hypertension -monitor and adjust medications as per plans above. FEN: Saline lock IV. Heart healthy diet. GI prophylaxis: Not indicated DVT prophylaxis: Currently on Xarelto will be bridged to warfarin Lines: Peripheral IV Code Status: Full code Dispo: Continue IMU Subjective Date/time seen: 04/02/24 13:58 Interval history: Patient does not want to be on Xarelto due to cost. Otherwise overall feels well. Denies any new complete Review of Systems Review of Systems: All systems reviewed & are unremarkable except as noted in HPI and below (Subjective) Exam Narrative: General:??Well-developed male sitting at the side of the bed in no distress. HEENT:?Wearing glasses. PERRL, EOMI. Sclera anicteric.? Oral mucosa moist.? Neck:??Supple. No significant jugular venous distension. Respiratory:?Respirations are non
[2024-04-02] MEDS: RIVAROXABAN 15 MG TABLET PO (18:29)
[2024-04-02] MEDS: WARFARIN (*PBKC) 5 MG TABLET PO (18:30)
[2024-04-02] MEDS: MELATONIN 5 MG TABLET PO (20:49)
[2024-04-03] VITALS (10 sets, daily range): BP systolic 82–96; BP diastolic 61–71; PULSE 80–97; RESP 16–20; TEMP 36–36.2; O2SAT 94–100
[2024-04-03 04:43] LABS: Eosinophils Absolute Auto 0.1 K/mm3 (0-0.3); Eosinophils Percent Auto 2.9 % (0-4.4); Hematocrit 49.3 % (42.0-52.0); Hemoglobin 16.1 g/dL (14.0-18.0); Immature Granulocyte Absolute 0.01 K/mm3 (0.00-0.031); Immature Granulocyte Percent A 0.2 % (0-0.5); Lymphocytes Absolute Auto 0.63 K/mm3 (0.9-3.2); Mean Corpuscular HGB Conc 32.7 g/dl (32-36); Mean Corpuscular Hemoglobin 31.3 pg (26-34); Mean Corpuscular Volume 95.7 fl (80-100); Mean Platelet Volume 11.1 fl (7.4-10.4); Monocytes Absolute Auto 0.5 K/mm3 (0.1-0.6); Monocytes Percent Auto 11.9 % (2.6-8.5); Neutrophils Absolute Auto 2.9 K/mm3 (1.3-6.7); Platelet Count Result 140 k/mm3 (150-375); Red Blood Count 5.15 M/mm3 (4.6-6.20); Red Cell Distribution Width 16.4 % (11.5-14.5); White Blood Count 4.2 K/mm3 (4.5-10.0)
[2024-04-03 04:56] LABS: INR 2.6; Prothrombin Time 28.4 Seconds (11.1-14.7)
[2024-04-03 05:02] LABS: Alanine Aminotransferase 38 U/L (6-50); Albumin Level 3.5 g/dL (3.5-5.1); Alkaline Phosphatase 67 U/L (38-126); Anion Gap 3 mmol/L (4-12); Aspartate Amino Transferase 45 U/L (17-59); Bilirubin,Total 1.3 mg/dL (0.2-1.3); Blood Urea Nitrogen 29 mg/dL (9-20); Calcium 8.7 mg/dL (8.4-10.2); Carbon Dioxide 30 mmol/L (22-30); Chloride 104 mmol/L (98-107); Estimated CRCL calculation 36 ml/min; Estimated Glomerular Filt Rate 40; Glucose 97 mg/dL (65-110); Magnesium 2.3 mg/dL (1.6-2.3); Potassium 3.9 mmol/L (3.4-5.0); Sodium 137 mmol/L (137-145)
[2024-04-03] MEDS: METOPROLOL SUCCINATE EXT REL 25 MG TABCR 75 MG PO (10:13)
[2024-04-03] MEDS: EMPAGLIFLOZIN 10 MG TABLET PO (10:14)
[2024-04-03] MEDS: SACUBITRIL/VALSARTAN 24-26 MG TABLET 1 TAB PO (10:14)
[2024-04-03] MEDS: SPIRONOLACTONE 25 MG TABLET PO (10:14)
[2024-04-03] MEDS: FUROSEMIDE 40 MG TABLET PO (10:14)
--- NOTE | 2024-04-03 11:22 | PM.DS ---
DS: Admitting Diagnosis Discharge Date 04/03/2024 Admitting Diagnosis Shortness of breath DS: Discharge Diagnosis Discharge Diagnosis (1) Acute exacerbation of CHF (congestive heart failure): Qualifiers: Heart failure type: unspecified Qualified Code(s): I50.9 - Heart failure, unspecified Code(s): I50.9 - Heart failure, unspecified Status: Acute (2) Atrial fibrillation with rapid ventricular response: Code(s): I48.91 - Unspecified atrial fibrillation Status: Acute (3) Elevated troponin: Code(s): R79.89 - Other specified abnormal findings of blood chemistry Status: Acute (4) Cardiomyopathy: Code(s): I42.9 - Cardiomyopathy, unspecified Status: Acute DS: Summary Hospital Course Hospital Course: 69-year-old male with the past medical history paroxysmal atrial fibrillation not currently on anticoagulation due to cost/lost to follow-up, cardiomyopathy with an EF 20-25% on echo in April 2023, hypertension, hyperlipidemia presenting to ER for evaluation of elevated heart rate and shortness of breath and increasing leg swelling and orthopnea.? The patient was seen for acute heart failure and atrial fibrillation in summer.? He was discharged on Xarelto and Toprol and furosemide.? He reports he has recently only been taking aspirin and furosemide.? At 1 point his Xarelto was switched to warfarin due to cost.? However he has not been taking blood thinner has been lost to follow-up (previously seeing Dr. Cherri An for PCP and Dr. 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 He is otherwise amenable to suggested therapy.? Admitted on 03/29/2024 for further workup and treatment.? CT on admission without pulmonary embolus. Acutely decompensated heart failure reduced ejection fraction, combined diastolic systolic dysfunction -In part due to medical noncompliance and the patient has also been drinking a lot of water. -currently on Lasix 40 mg IV b.i.d..? His lower extremity 3+ edema remains the same.? Venous duplex lower extremity negative for DVT.? His main concern is that does not like the physical appearance of his legs.? Start graduated compression stockings. -otherwise continue to appreciate Cardiology recommendations for guideline directed medical therapy -he previously saw Dr. Colvin and was happy with the care given. suggested to continue follow up with our [facility] cardiology group of [place] Atrial fibrillation with RVR -in part due to noncompliance.? He has been started on metoprolol.? He is amenable to using Xarelto now however we will check cost with care coordination.? Pending results of their investigation -telemetry demonstrating RVR in 100s to 110s.? Cardiology increasing metoprolol on 03/31 Does not want to be on Xarelto due to cost issues. Switched to warfarin however needs to be bridged. Follow-up with PCP and INR monitoring discussed with the patient Elevated troponin -likely due to demand ischemia Cardiomyopathy -he was lost to follow-up in still needs make evaluation at some point.? Again, follow-up with cardiology outpatient -surface echocardiogram demonstrates EF 15-20% on 03/30/24 On goal-directed medical therapy however hypotension issues present. Fairly stable on current doses History of hypertension -monitor and adjust medications as per plans above. FEN:? Saline lock IV.? Heart healthy diet. GI prophylaxis:? Not indicated DVT prophylaxis:? Currently on Xarelto will be switched to warfarin Lines:? Peripheral IV Code Status:? Full code Dispo:? Home self-care Time Spent with Patient Time attestation: Total time spent providing and/or coordinating discharge services: 30 minutes Exam Narrative: General:??Well-developed male sitting at the side of the bed in no distress. HEENT:?Wearing glasses. PERRL, EOMI. Sclera anicteric.? Oral mucosa moist.? Neck:??S
== END 2024-04-03 15:13 | disposition home or self-care (01) | DRG 291 ==
LOC: ANHED 15:11 → ANHIMU 16:46
PROVIDERS: Emergency Medicine; General Practice; Physician Assistant; Admitting Provider Family Medicine; Emergency Provider Student in an Organized Health Care Education/Training Program; PCP Internal Medicine; Visit Provider Internal Medicine
DX: I11.0 Hypertensive heart disease with heart failure (principal); I50.43 Acute on chronic combined systolic (congestive) and diastolic (congestive) heart failure; I48.0 Paroxysmal atrial fibrillation; I42.9 Cardiomyopathy, unspecified; E78.2 Mixed hyperlipidemia; R73.03 Prediabetes; R79.89 Other specified abnormal findings of blood chemistry; Z79.82 Long term (current) use of aspirin; Z91.148 Patient's other noncompliance with medication regimen for other reason
CPT/HCPCS: 36415; 80048; 80053; 83735; 83880; 84100; 84132; 84484; 85025; 85027; 85055; 85610; 85730; 93005; 93970; 96374; 96375; 99285; A9270; C8929; J1650; J1940; J7050; Q9957

== ENCOUNTER 2024-04-11 15:38 | Outpatient (CLI) | payer OTHER, SELFPAY ==
[2024-04-11 18:55] LABS: INR 1.6; Prothrombin Time 19.1 Seconds (11.1-14.7)
== END 2024-04-11 15:39 | disposition home or self-care (01) ==
PROVIDERS: PCP Internal Medicine; Visit Provider Internal Medicine
DX: I48.91 Unspecified atrial fibrillation (principal)
CPT/HCPCS: 36415; 85610

== ENCOUNTER 2024-04-28 16:08 | Outpatient (CLI) | payer OTHER, SELFPAY ==
[2024-04-28 16:34] LABS: Anion Gap 8 mmol/L (4-12); Blood Urea Nitrogen 39 mg/dL (9-20); Calcium 9.7 mg/dL (8.4-10.2); Carbon Dioxide 31 mmol/L (22-30); Chloride 102 mmol/L (98-107); Estimated Glomerular Filt Rate 40; Glucose 100 mg/dL (65-110); Potassium 4.4 mmol/L (3.4-5.0); Sodium 141 mmol/L (137-145)
[2024-04-28 16:49] LABS: INR 2.7; Prothrombin Time 28.8 Seconds (11.1-14.7)
== END 2024-04-28 16:09 | disposition home or self-care (01) ==
LOC: ANHLAB 16:10
PROVIDERS: PCP Internal Medicine; Visit Provider Nurse Practitioner Adult Health
DX: I48.20 Chronic atrial fibrillation, unspecified (principal); I48.11 Longstanding persistent atrial fibrillation; I42.0 Dilated cardiomyopathy; Z79.01 Long term (current) use of anticoagulants
CPT/HCPCS: 36415; 80048; 85610